=== PATIENT | female | born 1930 | race Caucasian/White ===

== ENCOUNTER 2016-10-04 08:46 | Inpatient (IN) | payer OTHER ==
--- NOTE | 2016-10-04 09:05 | PDOC ---
Attending Attestation - Resident Resident Name: Fide Bentley - ED Attending Attestation I have performed the following: I have examined & evaluated the patient, The case was reviewed & discussed with the resident, I agree w/resident's findings & plan, Exceptions are as noted - HPI HPI: 10/04/16 09:06 The patient is an 86 year old who presents s/p unwitnessed fall with head trauma. After the fall she had no complaints but this morning she was complaining of left hip pain and the daughter noticed a bruise on her left forehead. She is unsure whether or not she lost consciousness before or after the fall. 10/04/16 12:44 10/04/16 12:46 - Physicial Exam PE: 10/04/16 09:08 She is well appearing and in no acute distress Small left forehead hematoma and ecchymosis No c-spine tenderness - Medical Decision Making 10/04/16 09:08 Will obtain head and C-spine CT Will obtain left hip XR 10/04/16 11:21 CTs noted X-ray noted As the patient continues to have pain when she bears weight, will obtain CT of the left hip and pelvis 10/04/16 12:43 CT results noted, without evidence of femur fracture but with evidence of pelvic fracture She is ambulating without difficulty She continues to report that she is unsure whether or not she lost consciousness before or after the fall. Labs noted, with mildly elevated troponin, but not in the range of NSTEMI Clinical impression: Syncope Acute Kidney injury Closed head injury, without evidence of concussion Pelvis fracture Will admit Case discussed in detail with admitting provider including history, physical exam and ancillary studies. Admitting physician has assumed care for the patient, will follow all pending diagnostics and will complete the evaluation and treatment. 10/04/16 13:38
--- NOTE | 2016-10-04 09:06 | PDOC ---
History of Present Illness - General Chief Complaint: Injury Stated Complaint: LEFT HIP PAIN Time Seen by Provider: 10/04/16 09:04 History Source: Patient, Family (daughter) - History of Present Illness Initial Comments: 10/04/16 09:16 The pt is a 86 year old female witha PMH of COPD, CKD, CHF, dementia who presents s/p unwitnessed fall last night. The pt pressed the alarm button and her daughter came to see her. This morning the pt was not able to stand and was complaining of left hip pain. Her daughter also noticed bruising on left side of her face. The pt doesn't know what happened, if she hit her head or had LOC. She is demented and lives alone. ROS is limited, her daughter is present at bedside. 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) Dementia: Yes - Psycho/Social/Smoking Cessation Hx Anxiety: No Suicidal Ideation: No Smoking History: Former smoker Have you smoked in the past 12 months: No If you are a former smoker, when did you quit?: 1989 Hx Alcohol Use: No Drug/Substance Use Hx: No Substance Use Type: None Review of Systems - Review of Systems Able to Perform ROS?: Yes (demented) Comments:: 10/04/16 09:45 REVIEW OF SYSTEMS: limited due to dementia CONSTITUTIONAL: Absent: fever, chills HEENT: Absent: ear pain, eye pain, visual changes CARDIOVASCULAR: Absent: chest pain, syncope, palpitations RESPIRATORY: Absent: cough, shortness of breath GASTROINTESTINAL: Absent: abdominal pain, nausea, vomiting, diarrhea, constipation, GENITOURINARY: Absent: dysuria MUSCULOSKELETAL: Absent: myalgia, arthralgia, joint swelling, back pain, neck pain SKIN: Absent: rash, itching, pallor NEUROLOGIC: Absent: headache, dizziness Is the patient limited Danish proficient: No *Physical Exam - Physical Exam Comments: 10/04/16 09:41 GENERAL: The patient is awake, alert, and fully oriented, in no acute distress, cachectic. HEAD: Bruise on left facialbone, no bleeding, head AT/NC. EYES: PERRL, extraocular movements intact, sclera anicteric, conjunctiva clear. No ptosis. ENT: Ears normal, nares patent, oropharynx clear without exudates, dry mucous membranes. NECK: Trachea midline, full range of motion, supple. LUNGS: Breath sounds equal, clear to auscultation bilaterally, no wheezes, no crackles, no accessory muscle use. HEART: Regular rate and rhythm, S1, S2, systolic murmur neema right and left sternaql border rdiating to apex, apex not displaced, no rub or gallop. ABDOMEN: Soft, nontender, nondistended, normoactive bowel sounds, no guarding, no rebound, no hepatosplenomegaly, no masses. EXTREMITIES: 2+ pulses, warm, well-perfused, no edema, pain on external rotation of left hip, nl ROM in r hip, nl ROM in upper extremities. NEUROLOGICAL: Normal speech, no facial asymmetry, gait not observed. PSYCH: Normal mood, normal affect. SKIN: Warm, dry, normal turgor, no rashes or lesions noted 10/04/16 12:57 ED Treatment Course - LABORATORY CBC & Chemistry Diagram: 10/04/16 10:50 10/04/16 10:50 Medical Decision Making - Medical Decision Making 10/04/16 09:48 The pt is a 86 year old female who presents s/p unwitnessed fall. Differential diagnosis include hip fracture, head trauma, ACS, metanolic imbalance. We ordered x ray left hip, CT head, c-spine CT, facial bone CT, cardiac profile , EKG, UA, CBC, CMP. 10/04/16 12:42 We reviewed the results of X ray hip/fracure-no acute pathology, CT lower extremitiy-nl, CT pelvis shows fracture, also nl CT head and facial bones Her BUN and Cr , troponin are elevated. The pt lives alone and is not able to bear omer. We recommend to admit her to inpatient-telemetry. Discussed with Dr. Carreno, hospitalist. *DC/Admit/Observation/Transfer Diagnosis at time of Disposition: Syncope - Discharge Dispostion Admit: Yes - Patient Instructions
[2016-10-04] MEDS ORDERED: ACETAMINOPHEN 1000 MG/100 ML VIAL (NON FORMULARY) IVPB ONE (09:52)
[2016-10-04] MEDS ORDERED: ACETAMINOPHEN INJECTION 100 ML IVPB ONE (10:51)
[2016-10-04 11:05] LABS: MCH 29.3 pg (25.7-33.7); MCHC 31.6 g/dl (32.0-36.0); MEAN CELL VOLUME 92.6 fl (80-96); MEAN PLT VOLUME 9.5 fl (7.5-11.1); PLATELET COUNT 162 K/MM3 (134-434); RDW 19.5 % (11.6-15.6); WHITE BLOOD COUNT 7.8 K/mm3 (4.0-10.0)
[2016-10-04 11:37] LABS: BILIRUBIN,TOTAL 1.5 mg/dL (0.2-1.0); CALCIUM 8.8 mg/dL (8.5-10.1); CREATININE 1.7 mg/dL (0.55-1.02); TOT PROT 6.4 g/dl (6.4-8.2)
[2016-10-04 12:00] LABS: TROPONIN I 0.11 ng/ml (0.00-0.05)
[2016-10-04] MEDS ORDERED: ALBUTEROL SO4 6.7 GM HFA INHALER IH PRN (14:25)
[2016-10-04] MEDS ORDERED: ACETAMINOPHEN 650 MG/20.3 ML ORAL SOLUTION (CUPS) PO PRN (14:27)
[2016-10-04 14:34] VITALS: BMI 24.4
--- NOTE | 2016-10-04 15:18 | HP ---
CHIEF COMPLAINT: S/P fall PCP: Dr Allison Museum Director: Dr Farley HISTORY OF PRESENT ILLNESS: 86 year old female with pmh of Dementia, COPD on intermittent home O2, CHF, CAD , CKD, Fall who lives alone presnted to the ED s/p fall last night. the fall was unwitnessed, the patient press the panic button and the companied notified the daughter. Upon arrival, the daughter found the patient on the floor with bruises in left hand and left check. The patient was awake, alert and seems to be at baseline therefore the daughter did not bring her to the emergency room. This morning however, the patient was unable to walk so the daughter brought to the ED. the patient does not recall the event prior to the fall, it is unknown if the fall was mechanical or if the patient lost consciousness. The patient did not have any episode of incontinence when she was found by daughter, she was not lethargic. The patient currently denies any chest pain, palpitation, shortness of breath, no dizziness or confusion, no changes in vision, no numbness or tingling, no back pain, no dysarthria. ER course was notable for: (1) XRay left hip, CT head, CT cspine, CT facial bone, Ct lower ext, CT pelvis (2) (3) Recent Travel: None PAST MEDICAL HISTORY: Dementia, COPD on intermittent home O2, CHF, CAD, CKD, Fall PAST SURGICAL HISTORY: Cholecystectomy Social History: Smoking: former smoker quit in 1989, used to smoked 2 pack per day throughout adulthood Alcohol: denies alcohol Drugs: denies recreational drug Family History: Dementia Allergies No Known Allergies Allergy (Verified 10/27/15 12:08) Lactose intolerance HOME MEDICATIONS: Home Medications Medication Instructions Recorded Albuterol Sulfate [Proair 90 mcg IH Q4H PRN 10/27/15 Respiclick] Aspirin [ASA -] 81 mg PO DAILY 10/27/15 Furosemide [Lasix -] 20 mg PO DAILY #30 tablet 11/01/15 Magnesium Oxide 400 mg PO DAILY #14 tablet 11/01/15 REVIEW OF SYSTEMS CONSTITUTIONAL: Absent: fever, chills, diaphoresis, generalized weakness, malaise, loss of appetite, weight change HEENT: hard of hearing Absent: rhinorrhea, nasal congestion, throat pain, throat swelling, difficulty swallowing, mouth swelling, ear pain, eye pain, visual changes CARDIOVASCULAR: Absent: chest pain, syncope, palpitations, irregular heart rate, lightheadedness , peripheral edema RESPIRATORY: Absent: cough, shortness of breath, dyspnea with exertion, orthopnea, wheezing, stridor, hemoptysis GASTROINTESTINAL: Absent: abdominal pain, abdominal distension, nausea, vomiting, diarrhea, constipation, melena, hematochezia GENITOURINARY: Absent: dysuria, frequency, urgency, hesitancy, hematuria, flank pain, genital pain MUSCULOSKELETAL: Absent: myalgia, arthralgia, joint swelling, back pain, neck pain SKIN: rash lower abdomen and perineal, bruise in left hand and left cheek Absent: itching, pallor HEMATOLOGIC/IMMUNOLOGIC: Absent: easy bleeding, easy bruising, lymphadenopathy, frequent infections ENDOCRINE: Absent: unexplained weight gain, unexplained weight loss, heat intolerance, cold intolerance NEUROLOGIC: Absent: headache, focal weakness or paresthesias, dizziness, unsteady gait, seizure, mental status changes, bladder or bowel incontinence PSYCHIATRIC: Absent: anxiety, depression, suicidal or homicidal ideation, hallucinations. PHYSICAL EXAMINATION Vital Signs - 24 hr 10/04/16 13:00 Pulse Rate [ 82 Apical] Respiratory 14 Rate Blood Pressure 109/60 [Right] O2 Sat by Pulse 99 Oximetry (%) GENERAL: Awake, alert, and fully oriented, in no acute distress. HEAD: Normal with no signs of trauma. EYES: Pupils unequal, right round and reactive to light, left oval barely reactive. extraocular movements intact, sclera anicteric, conjunctiva clear. No lid lag. EARS, NOSE, THROAT: Ears normal, nares patent, oropharynx clear without exudates. Moist mucous membranes. NECK: Normal range of motion, supple without lymphadenopathy, moderate JVD, or masses. LUNGS: Breath sounds equal, clear to auscultation bilaterally. No wheezes, No accessory muscle use. B/l crackles in lower lung fileds HEART: Regular rate and rhythm, normal S1 and S2 with pansystolic murmur 3/6, rub or gallop. ABDOMEN: Soft, nontender, not distended, normoactive bowel sounds, no guarding, no rebound, no masses. No hepatomegaly or splenomegaly. MUSCULOSKELETAL: Normal range of motion at all joints. No bony deformities or tenderness. No CVA tenderness. UPPER EXTREMITIES: 2+ pulses, warm, well-perfused. No cyanosis. No clubbing. No peripheral edema. LOWER EXTREMITIES: 2+ pulses, warm, well-perfused. No calf tenderness. b/l lower ext edma 2+. Limited rom in b/l hips. NEUROLOGICAL: Alert, awake, oriented to person and place, not to time, forgetful. unable to properly assess Cranial nerves. No chnages in vision with glasses, poor hearing, no facial assymetry or droop, normal light touch sensation in face, no uvula deviation or tongue deviation, normal head motion, No deficits to light touch and temperature in face, upper extremities and lower extremities. No motor deficits in the in face, upper extremities and lower extremities. Normoreflexic in the upper and lower extremities. Normal speech. Toes are down-going bilaterally. Unable to assess gait to hip fracture. PSYCHIATRIC: Cooperative. Good eye contact. Appropriate mood and affect. SKIN: Warm, dry,poor skin turgor, rashes in lower abdomen and perineal area, skin bruise over left zygomatic bone CBC, BMP 10/04/16 10:50 10/04/16 10:50 ASSESSMENT/PLAN: 86 year old female with pmh of Dementia, COPD on intermittent home O2, CHF, CAD , CKD, Fall who lives alone presnted to the ED with her daughter s/p fall unwitnessed fall. Pt was found to have communited fracture in left pelvic bone and non discplaced fracture of mid anterior ischium. Unwitnessed Fall r/o Syncope Syncope can due by multiple causes including orthostatic, cardiac arrhythmia, mechanical cardiac (Aortic Stenosis), orthostatic, Vasovagal. Other causes may include Seizure but it is unlikely due to lack of lip/tongue biting, incontinence, post ictal phase when found by daughter. It may have been a mechanical fall. Consider acute hypoglypoglycemia, medication effect, dehydration, electrolytes imbalance, UTI and other infections. Also have to worry about trauma from fall. CT head showed nothing acute CT Cspine was negative for fracture bit showed emphysema, moderate left pleural effusion. recent echocardiogram done at Dr Farley [facility], will obtain records. Will repeat echo if unable to get records Telemetry EKg UA CXR Troponins BMP, CBC, mg, phos in am BGM Consider cardiology consult Dr Farley Comminuted fracture in left pelvic bone and non displaced fracture of mid anterior ischium CT hip and CT lower ext showed fracture bed rest Consult ortho Margarita Echeverria Physical therapy eval Elevated troponins r/o ACS vs Enzymes leakage from CHF//cardiomyopathy EKg with junctional rhythm 99 T-wave inversion in leads V4 to V6, T wave flattening in leads II, III, AvF Trend troponins Cardiology consult Dr Farley CKD Cr 1.7 baseline is close to 1.4 in last admission in 2016 Candidal intertrigo clotrimazole cream or nystatin powder BID COPD Albuterol PRN CHF/CAD Pt has mild JVD, lower ext edema and crackle Prior Echo showed Normal LV size, LV systolic function moderately reduced, Moderate global hypokinesis. Severe Aortic stenosis with aortic mean pressure gradient=36. Aortic valve area 0.3cm sq. Moderate MR, TR, RVSP more than 60, severe pulm HTN. CXR BNP cardiac profile Resume lasix Monitor Blood Pressure cardiology consult Dementia Consider aricept FEN Fluid: none Electrolytes: none Nutrition: none DVT prophylaxis: Heparin SQ 5000 U q8h Disposition: keep in telemetry pending complete syncope workup, trending troponins, and ortho eval for the fracture. Visit type - Emergency Visit Emergency Visit: Yes ED Registration Date: 10/04/16 Care time: The patient presented to the Emergency Department on the above date and was hospitalized for further evaluation of their emergent condition. - New Patient This patient is new to me today: Yes Date on this admission: 10/04/16 - Critical Care Critical Care patient: No
[2016-10-04] MEDS: HEPARIN NA (PORCINE) 5,000 UNITS/ML 1ML VIAL SQ SCH ×2 (15:57→22:24)
--- NOTE | 2016-10-04 16:58 | CON.CARD ---
Cardiology Consult (text) - Consultation Consultation Note: CC: s/p fall 86-year-old with h/o severe and cardiomyopathy, presumed CAD, emphysema on home O2, CKD, and dementia, who presents today s/p fall Per report, patient activated help button s/p fall. Fall was unwitnessed, she does not remember details of event. Not clear if mechanical fall or syncope. Patient had been in usual state of health. No recent worsening of mental status. Currently denies cp, sob, palps, dizziness, palps. Denies f/c/s, n/v/d, h/a, rashes, cough, congestion. PMHx: Per HPI Social hx: Former smoker, no alcohol or illicits. Family hx: no cardiac history ROS: Per HPI, limited due to mental status. Ambulatory Orders Albuterol Sulfate [Proair Respiclick] 90 mcg IH Q4H PRN 10/27/15 Aspirin [ASA -] 81 mg PO DAILY 10/27/15 Furosemide [Lasix -] 20 mg PO DAILY #30 tablet 11/01/15 Magnesium Oxide 400 mg PO DAILY #14 tablet 11/01/15 Clotrimazole 15 gm TP DAILY 10/04/16 Current Medications Acetaminophen (Tylenol Oral Solution -) 650 mg PO Q6H PRN PRN Reason: FEVER OR PAIN Albuterol Sulfate (Ventolin Hfa Inhaler -) 1 puff IH Q4H PRN PRN Reason: WHEEZING Furosemide (Lasix -) 20 mg PO DAILY [facility] Heparin Sodium (Porcine) (Heparin -) 5,000 unit SQ TID [facility] Last Admin: 10/04/16 15:57 Dose: 5,000 unit Magnesium Oxide (Mag-Ox -) 400 mg PO DAILY [facility] Nystatin (Nystop Powder -) 1 applic TP BID [facility] Vital Signs - 24 hr 10/04/16 10/04/16 10/04/16 08:59 13:00 14:16 Temperature 98.1 F 97.7 F Pulse Rate 67 87 Pulse Rate [ 82 Apical] Respiratory 16 14 20 Rate Blood Pressure 105/53 102/56 Blood Pressure 109/60 [Right] O2 Sat by Pulse 96 99 99 Oximetry (%) 10/04/16 10/04/16 10/04/16 14:43 15:29 15:50 Temperature 97.5 F L Pulse Rate 82 Pulse Rate [ 92 H Apical] Respiratory 16 17 18 Rate Blood Pressure 103/55 Blood Pressure 109/56 [Right] O2 Sat by Pulse 99 99 Oximetry (%) 10/04/16 17:00 Temperature 98.0 F Pulse Rate 90 Pulse Rate [ Apical] Respiratory 18 Rate Blood Pressure 115/56 Blood Pressure [Right] O2 Sat by Pulse Oximetry (%) NAD, Calm AAOx 2 Bibasilar dullness, normal effort RRR nl s1, s2 2/6 harsh systolic murmur at USB, radiating throughout precordium. 2/6 sys murmur at apex (MR?) + bs soft nt nd trace edema ext without cyanosis or clubbing + dp/pt no jaundice or diaphoresis. CBC, BMP 10/04/16 10:50 10/04/16 10:50 Laboratory Tests 10/04/16 10/04/16 10:50 17:00 Total Bilirubin 1.5 H D AST 37 D ALT 28 D Alkaline Phosphatase 238 H D Creatine Kinase 78 67 Troponin I 0.11 H 0.12 H Albumin 3.0 L EKG: poor baseline, SR, anterolateral T wave inversions, likely repolarization abnormality. Similar to priors tele: SR, pac's, artifact echo 09/2016: nl lv size, global HK, lvef 35-40, g2dd, nl rv, mild lae, trace ar , sev , mild mac, mild mr, mod tr, mod phtn.eg 86-year-old with h/o severe and cardiomyopathy, presumed CAD, emphysema , CKD , and dementia, who presents today s/p fall Fall/syncope - unknown if mechanical or syncope/presyncope - PT evaluation - If true syncope --> concerning for as etiology. Orthostatic vitals if possible. Infectious work up per pmd. - TSH - telemetry monitoring. Pre-operative clearance/pelvic fracture - Patient with end-stage valvular which meets criteria for intervention, but has deferred. As a result patient is at high risk for surgery and would recommend non-surgical options if possible. 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 Pt has dementia and does not fully understand her condition. Ongoing conservative tx with diuretic as tolerated. - Patient currently volume overloaded and in heart failure exacerbation with pulmonary edema on CXR and hepatic congestion.. If no concern for worsening hypotension 2/2 infection/anemia (small hematoma assoc with fx on CT) would intiate gentle diuresis with lasix 20 mg IV daily tomorrow with close monitoring. - caution with hypotension, avoid volume depletion cardiomyopathy - unclear to me if 2/2 end-stage or if cardiomyopathy was pre-existing. If 2 /2 then adds to overall risk/poor prognosis of . - Minimal bp room for HF regimen. diuresis as above. possible cad: - During admit 10/2015 for chf/ pt had mildly elevated trop. Flat trop trend then was not c/w ACS (plaque rupture) and was likely secondary to hypoperfusion or transient supply/demand imbalance, hemodynamically signif may have contributed as well. - current intermediate troponin elevation, also with flat trend. Likely similar etiology. - con't asa 81 . statin at discretion of outpatient payroll administrator once hepatic function normalizes. - Currently no anginal sxs and able to enjoy her senior center activities and with her baseline dementia further ischemic workup unlikely to provide significant benefit. Monitor for now. ckd - appears to be close to baseline. copd - per pmd
[2016-10-04 18:10] LABS: TROPONIN I 0.12 ng/ml (0.00-0.05)
--- NOTE | 2016-10-04 19:09 | PN ---
Teaching Attending Note Name of Resident: David Prado ATTENDING PHYSICIAN STATEMENT I saw and evaluated the patient. I reviewed the resident's note and discussed the case with the resident. I agree with the resident's findings and plan as documented. SUBJECTIVE: OBJECTIVE: Vital Signs Period Temp Pulse Resp BP Sys/Hyman Pulse Ox Last 24 Hr 97.5 F-98.1 F 67-92 14-20 102-109/53-60 96-99 ASSESSMENT AND PLAN:
[2016-10-04] MEDS: NYSTATIN POWDER 100,000 UNITS/GM - 15 GM TOPICAL POWDER TP SCH (22:24)
[2016-10-05] MEDS: HEPARIN NA (PORCINE) 5,000 UNITS/ML 1ML VIAL SQ SCH ×3 (06:46→22:06)
[2016-10-05 08:04] LABS: MCH 29.4 pg (25.7-33.7); MEAN CELL VOLUME 91.8 fl (80-96); MEAN PLT VOLUME 9.6 fl (7.5-11.1); PLATELET COUNT 164 K/MM3 (134-434); RDW 20.1 % (11.6-15.6); WHITE BLOOD COUNT 6.3 K/mm3 (4.0-10.0)
[2016-10-05 08:15] LABS: CALCIUM 8.3 mg/dL (8.5-10.1); INR 1.1 (0.82-1.09); MAGNESIUM 2.2 mg/dL (1.8-2.4); PROTHROMBIN TIME (PATIENT) 12.1 SEC (9.98-11.88)
[2016-10-05 08:18] LABS: ACTIVATED PTT 27.4 SECONDS (26.9-34.4)
[2016-10-05 08:21] LABS: CREATININE 1.7 mg/dL (0.55-1.02); PHOSPHOROUS 2.9 mg/dL (2.5-4.9); TROPONIN I 0.12 ng/ml (0.00-0.05)
--- NOTE | 2016-10-05 09:07 | PN ---
Progress Note, Physician Chief Complaint: fall History of Present Illness: denies cp, sob, dizzy, palpitations (? reliable) - Current Medication List Current Medications: Active Medications Acetaminophen (Tylenol Oral Solution -) 650 mg PO Q6H PRN PRN Reason: FEVER OR PAIN Albuterol Sulfate (Ventolin Hfa Inhaler -) 1 puff IH Q4H PRN PRN Reason: WHEEZING Furosemide (Lasix -) 20 mg PO DAILY [facility] Heparin Sodium (Porcine) (Heparin -) 5,000 unit SQ TID [facility] Last Admin: 10/05/16 06:46 Dose: 5,000 unit Magnesium Oxide (Mag-Ox -) 400 mg PO DAILY [facility] Nystatin (Nystop Powder -) 1 applic TP BID [facility] Last Admin: 10/04/16 22:24 Dose: 1 applic - Objective Vital Signs: Vital Signs Temperature 97.7 F 10/05/16 01:00 Pulse Rate 100 H 10/05/16 01:00 Respiratory Rate 24 10/05/16 01:00 Blood Pressure 110/65 10/05/16 01:00 O2 Sat by Pulse Oximetry (%) 98 10/04/16 21:00 Constitutional: Yes: Well Nourished, No Distress, Calm Cardiovascular: Yes: Regular Rate and Rhythm (soft sounds), JVD, Murmur (soft syst murmur lusb), S1, S2. No: Gallop Respiratory: Yes: Regular, CTA Bilaterally, Diminished (L base). No: Accessory Muscle Use, Rales, Wheezes Extremities: No: Cold Edema: Yes (1+ ankles) Neurological: Yes: Alert. No: Seizure Psychiatric: No: Agitated Labs: CBC, BMP 10/05/16 05:35 10/05/16 05:35 INR, PTT INR 1.10 (0.82-1.09) 10/05/16 05:35 - ....Imaging EKG: Other (tele: likely sinus rhythm with freq APCs, some degree of sinus arrhythmia) Assessment/Plan Echo 09/2016: nl lv size, global HK, lvef 35-40, g2dd, nl rv, mild lae, sev , mild mr, mod tr, mod phtn 86-year-old with h/o severe and cardiomyopathy, presumed CAD, emphysema , CKD , and dementia, who presents today s/p fall Fall/syncope - unknown if mechanical or syncope/presyncope - PT evaluation - If true syncope --> concerning for as etiology. Orthostatic vitals if possible. Infectious work up per pmd. - telemetry monitoring. 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 - Patient currently volume overloaded and in heart failure exacerbation with pulmonary edema/effusions on CXR, +JVD -creat 1.7, similar to baseline (1.6) -start lasix 20 iv bid--watch for low bp's, daily bmp trend cardiomyopathy - unclear if 2/2 end-stage or if cardiomyopathy was pre-existing. - bp's 100s-110s here - reassess bp after diuresis--consider low dose BB (> ANGELES) if adequate bp room ( can also be done as outpt) possible cad: - During admit 10/2015 for chf/ pt had mildly elevated trop, in non-ACS picture (flat trend)--likely secondary to hypoperfusion or transient supply/ demand imbalance or incr myocardial wall tension from severe - current intermediate troponin elevation, also with flat trend, ECG without ischemic changes--no concern clinically for ACS here - con't asa 81. - Currently no anginal sxs and able to enjoy her senior center activities and with her baseline dementia further ischemic workup unlikely to provide significant benefit. Monitor for now. irregular heart rhythm: - likely sinus with sinus arrhythmia and APCs - ekg and rhythm strip ordered to confirm ckd - appears to be close to baseline. copd - per pmd
[2016-10-05 09:19] LABS: URINE APPEARANCE CLEAR; URINE BILIRUBIN NEGATIVE (NEGATIVE); URINE BLOOD NEGATIVE (NEGATIVE); URINE COLOR DKYELLOW; URINE GLUCOSE (UA) NEGATIVE (NEGATIVE); URINE KETONE NEGATIVE (NEGATIVE); URINE NITRITE NEGATIVE (NEGATIVE); URINE PROTEIN NEGATIVE (NEGATIVE); URINE UROBILINOGEN NEGATIVE E.U./dl (0.2-1.0)
[2016-10-05 09:21] LABS: URINE LEUK ESTERASE TRACE (NEGATIVE)
[2016-10-05 09:22] LABS: GRANULAR CASTS 3 /lpf; URINE BACTERIA RARE /hpf (NONE SEEN); URINE MUCUS RARE; URINE RBC 1 /hpf (0-3); URINE WBC 2 /hpf (3-5)
[2016-10-05] MEDS ORDERED: FUROSEMIDE 20 MG TABLET (FP) PO SCH (10:00)
[2016-10-05] MEDS: MAGNESIUM OXIDE 400 MG TABLET (FP) PO SCH (11:06)
[2016-10-05] MEDS: NYSTATIN POWDER 100,000 UNITS/GM - 15 GM TOPICAL POWDER TP SCH ×2 (11:07→22:06)
--- NOTE | 2016-10-05 11:59 | PN ---
Progress Note (short form) - Note Progress Note: currently asymptomatic. states she knows she fell out of the bed but does not recall the surrounding situation and if she had any symptoms prior to falling. denies Cp, SOB,fever, chills, N/V/C/D Current Medications Generic Name Dose Route Start Last Admin Trade Name Freq PRN Reason Stop Dose Admin Acetaminophen 650 mg 10/04/16 14:27 Tylenol Oral Solution - PO Q6H PRN FEVER OR PAIN Albuterol Sulfate 1 puff 10/04/16 14:25 Ventolin Hfa Inhaler - IH Q4H PRN WHEEZING Furosemide 20 mg 10/05/16 14:00 Lasix Injection - IVPUSH BID@0600,1400 ANABELLE Heparin Sodium (Porcine) 5,000 unit 10/04/16 14:45 10/05/16 06:46 Heparin - SQ 5,000 unit TID ANABELLE Administration Magnesium Oxide 400 mg 10/05/16 10:00 10/05/16 11:06 Mag-Ox - PO 400 mg DAILY ANABELLE Administration Nystatin 1 applic 10/04/16 22:00 10/05/16 11:07 Nystop Powder - TP 1 applic BID ANABELLE Administration Last Vital Signs Temp Pulse Resp BP Pulse Ox 98.6 F 89 18 121/76 98 10/05/16 09:00 10/05/16 09:00 10/05/16 09:00 10/05/16 09:00 10/05/16 09:00 General NAD CV s1 S2 RRR +murmur no rubs or gallops Lungs decreased at the bases, no wheezing or crackles Abdomen soft NT/ND Extremities no pedal edema CBCD WBC 6.3 K/mm3 (4.0-10.0) 10/05/16 05:35 RBC 3.83 M/mm3 (3.60-5.2) 10/05/16 05:35 Hgb 11.3 GM/dL (10.7-15.3) 10/05/16 05:35 Hct 35.2 % (32.4-45.2) 10/05/16 05:35 MCV 91.8 fl (80-96) 10/05/16 05:35 MCHC 32.0 g/dl (32.0-36.0) 10/05/16 05:35 RDW 20.1 % (11.6-15.6) H 10/05/16 05:35 Plt Count 164 K/MM3 (134-434) 10/05/16 05:35 MPV 9.6 fl (7.5-11.1) 10/05/16 05:35 CMP Sodium 142 mmol/L (136-145) 10/05/16 05:35 Potassium 4.2 mmol/L (3.5-5.1) 10/05/16 05:35 Chloride 106 mmol/L (98-107) 10/05/16 05:35 Carbon Dioxide 23 mmol/L (21-32) 10/05/16 05:35 Anion Gap 13 (8-16) 10/05/16 05:35 BUN 38 mg/dL (7-18) H 10/05/16 05:35 Creatinine 1.7 mg/dL (0.55-1.02) H 10/05/16 05:35 Creat Clearance w eGFR 28.56 (>60) 10/04/16 10:50 Random Glucose 85 mg/dL (74-106) 10/05/16 05:35 Calcium 8.3 mg/dL (8.5-10.1) L 10/05/16 05:35 Total Bilirubin 1.5 mg/dL (0.2-1.0) H D 10/04/16 10:50 AST 37 U/L (15-37) D 10/04/16 10:50 ALT 28 U/L (12-78) D 10/04/16 10:50 Alkaline Phosphatase 238 U/L (45-117) H D 10/04/16 10:50 Total Protein 6.4 g/dl (6.4-8.2) 10/04/16 10:50 Albumin 3.0 g/dl (3.4-5.0) L 10/04/16 10:50 CARDIAC ENZYMES Creatine Kinase 85 IU/L (26-192) 10/05/16 05:35 Troponin I 0.12 ng/ml (0.00-0.05) H 10/05/16 05:35 A/P 86yo F wtih PMH Dementia, COPD on intermittent home O2, CHF, CAD, CKD, Fall presented to the ER and was admitted for further evaluation of their emergent condition 1. Unwitnessed fall- unable to r/o syncope. no events on tele monitor. recent echo noted from cardiology with severe which can play a role in symptoms however pt has refused surgical intervention. PT eval 2. Acute on chronic systolic CHF- no baseline weight obtained. cont lasix 20mg IV BID. monitor electrolytes. strict I&O, daily weights. will start acei if Cr stays stable 3. Elevated tropinin- likely leak. was elevated last year when here for similar presentation. no EKG changes. re-start asa 4. Pelvic fracture- not a good surgical candidate. ortho consulted. pain control. PT eval once cleared for weight bearing. may require RODRIGO on discharge 5. COPD on home O2- not currently on oxygen. will have her evaluated prior to discharge. nebs prn 6. DVT ppx- hep sq Visit type - Emergency Visit Emergency Visit: Yes ED Registration Date: 10/04/16 Care time: The patient presented to the Emergency Department on the above date and was hospitalized for further evaluation of their emergent condition. - New Patient This patient is new to me today: Yes Date on this admission: 10/05/16 - Critical Care Critical Care patient: No - Discharge Referral Referred to [facility] Med P.C.: No
[2016-10-05] MEDS: ASPIRIN COATED 81 MG TABLET.EC PO SCH (13:07)
[2016-10-05] MEDS: FUROSEMIDE 40 MG/4 ML INJECTABLE VIAL IVPUSH SCH (13:07)
--- NOTE | 2016-10-05 18:22 | EKG ---
Test Reason : Blood Pressure : / mmHG Vent. Rate : 101 BPM Atrial Rate : 101 BPM P-R Int : 000 ms QRS Dur : 100 ms QT Int : 346 ms P-R-T Axes : 094 015 188 degrees QTc Int : 448 ms SINUS TACHYCARDIA WITH PREMATURE SUPRAVENTRICULAR COMPLEXES AND PREMATURE VENTRICULAR COMPLEXES OR FUSION COMPLEXES ABNORMAL ECG WHEN COMPARED WITH ECG OF 05-OCT-2016 09:39, FUSION COMPLEXES ARE NOW PRESENT PREMATURE VENTRICULAR COMPLEXES ARE NOW PRESENT Confirmed by AMY DELGADO, ROSA ([id number]) on 10/05/2016 6:21:37 PM Referred By: Heaven ORNELAS Confirmed By:ROSA REYES MD
--- NOTE | 2016-10-05 18:22 | EKG ---
Test Reason : Blood Pressure : / mmHG Vent. Rate : 099 BPM Atrial Rate : 099 BPM P-R Int : 154 ms QRS Dur : 098 ms QT Int : 356 ms P-R-T Axes : 060 021 189 degrees QTc Int : 456 ms SINUS RHYTHM WITH PREMATURE ATRIAL COMPLEXES LEFT VENTRICULAR HYPERTROPHY WITH REPOLARIZATION ABNORMALITY ABNORMAL ECG WHEN COMPARED WITH ECG OF 04-OCT-2016 11:04, SINUS RHYTHM HAS REPLACED JUNCTIONAL RHYTHM Confirmed by AMY DELGADO, ROSA ([id number]) on 10/05/2016 6:22:35 PM Referred By: Kya LINDSAY Confirmed By:ROSA REYES MD
--- NOTE | 2016-10-05 18:33 | EKG ---
Test Reason : Blood Pressure : / mmHG Vent. Rate : 099 BPM Atrial Rate : 100 BPM P-R Int : 000 ms QRS Dur : 098 ms QT Int : 362 ms P-R-T Axes : 000 000 191 degrees QTc Int : 464 ms POOR DATA QUALITY, INTERPRETATION MAY BE ADVERSELY AFFECTED ACCELERATED JUNCTIONAL RHYTHM LEFT VENTRICULAR HYPERTROPHY WITH REPOLARIZATION ABNORMALITY ABNORMAL ECG WHEN COMPARED WITH ECG OF 27-OCT-2015 15:01, JUNCTIONAL RHYTHM HAS REPLACED SINUS RHYTHM Confirmed by ROSA REYES MD ([id number]) on 10/05/2016 6:32:47 PM Referred By: Confirmed By:ROSA REYES MD
[2016-10-05] MEDS ORDERED: PT OWN MED DRAWER 7, Y5N ONE (22:09)
[2016-10-06] MEDS: HEPARIN NA (PORCINE) 5,000 UNITS/ML 1ML VIAL SQ SCH ×3 (06:49→21:08)
[2016-10-06] MEDS: FUROSEMIDE 40 MG/4 ML INJECTABLE VIAL IVPUSH SCH ×2 (06:49→13:00)
[2016-10-06] MEDS ORDERED: HALOPERIDOL LACTATE 5 MG/ML IM ONE (07:44)
[2016-10-06] MEDS: ACETAMINOPHEN 325 MG TABLET (FP) PO PRN ×3 (07:50→16:23)
[2016-10-06 07:59] LABS: CALCIUM 8.5 mg/dL (8.5-10.1)
[2016-10-06 08:00] LABS: CREATININE 1.8 mg/dL (0.55-1.02)
--- NOTE | 2016-10-06 08:47 | PN ---
Physical Exam: SUBJECTIVE: Patient seen and examined Pt is out of bed to chair in the hallway No s./s of distress presently confused no fever or chills no chest pain, palpitation, no sob OBJECTIVE: Vital Signs Period Temp Pulse Resp BP Sys/Hyman Pulse Ox Last 24 Hr 97.6 F-98.6 F 89-111 18-20 102-125/54-76 96-98 GENERAL: Awake, alert, and oriented to person only, in no acute distress. HEAD: Normal with no signs of trauma. LUNGS: Breath sounds equal, clear to auscultation bilaterally. No wheezes, No accessory muscle use. Minimal B/l crackles in lower lung arciniega HEART: Regular rate and rhythm, normal S1 and S2 with pansystolic murmur 3/6, rub or gallop. ABDOMEN: Soft, nontender, not distended, normoactive bowel sounds, no guarding, no rebound, no masses. No hepatomegaly or splenomegaly. MUSCULOSKELETAL: Normal range of motion at all joints. No bony deformities or tenderness. No CVA tenderness. UPPER EXTREMITIES: 2+ pulses, warm, well-perfused. No cyanosis. No clubbing. No peripheral edema. LOWER EXTREMITIES: 2+ pulses, warm, well-perfused. No calf tenderness. b/l lower ext edma 2+. Limited rom in b/l hips. NEUROLOGICAL: Alert, awake, oriented to person, not to time, place. forgetful. moves all ext. no focal weakness, take couple of steps with assist PSYCHIATRIC: Cooperative. Good eye contact. Appropriate mood and affect. SKIN: Warm, dry,poor skin turgor, rashes in lower abdomen and perineum area improving and receding Laboratory Results - last 24 hr 10/05/16 10/06/16 12:47 05:35 Sodium 139 Potassium 4.0 Chloride 102 Carbon Dioxide 26 Anion Gap 11 BUN 40 H Creatinine 1.8 H POC Glucometer 110 Random Glucose 79 Calcium 8.5 Active Medications Generic Name Dose Route Start Last Admin Trade Name Freq PRN Reason Stop Dose Admin Acetaminophen 650 mg 10/06/16 07:49 Tylenol - PO Q4H PRN FEVER OR PAIN Albuterol Sulfate 1 puff 10/04/16 14:25 Ventolin Hfa Inhaler - IH Q4H PRN WHEEZING Aspirin 81 mg 10/05/16 12:15 10/05/16 13:07 Ecotrin - PO 81 mg DAILY ANABELLE Administration Furosemide 20 mg 10/05/16 14:00 10/06/16 06:49 Lasix Injection - IVPUSH 20 mg BID@0600,1400 ANABELLE Administration Heparin Sodium (Porcine) 5,000 unit 10/04/16 14:45 10/06/16 06:49 Heparin - SQ 5,000 unit TID ANABELLE Administration Magnesium Oxide 400 mg 10/05/16 10:00 10/05/16 11:06 Mag-Ox - PO 400 mg DAILY ANABELLE Administration Nystatin 1 applic 10/04/16 22:00 10/05/16 22:06 Nystop Powder - TP 1 applic BID ANABELLE Administration CBC, BMP 10/05/16 05:35 10/06/16 05:35 ASSESSMENT/PLAN: 86 year old female with pmh of Dementia, COPD on intermittent home O2, CHF, CAD , CKD, Fall who lives alone presented to the ED with her daughter s/p fall unwitnessed fall. Pt was found to have comminuted fracture in left pelvic bone and non displaced fracture of mid anterior ischium. Unwitnessed Fall r/o Syncope Syncope can due by multiple causes including orthostatic, cardiac arrhythmia, mechanical cardiac (Aortic Stenosis), orthostatic, Vasovagal. Seizure is unlikely due to lack of lip/tongue biting, incontinence, post ictal phase when found by daughter. It may have been a mechanical fall. Consider acute hypoglypoglycemia, medication effect, dehydration, electrolytes imbalance, UTI and other infections. Also have to worry about trauma from fall. CT head showed nothing acute CT C-spine was negative for fracture bit showed emphysema, moderate left pleural effusion. Recent echocardiogram done at Dr [facility]. Echo from last year showed LV nl size, LV syst function mod reduced, Mod global hypokinesis, sever pulm HTN, RSVP >60, mod TR and MR. Aortic mean pressure gradient =36, aortic valve 0.3cm sq Telemetry monitoring Consider cardiology consult Dr Farley Comminuted fracture in left pelvic bone and non displaced fracture of mid anterior ischium CT hip and CT lower ext showed fracture Consult ortho Dr Hager, Pt seen by Dr Morris, No surgery needed Weight bearing as tolerated pain control Physical therapy eval irregular heart rhythm Sinus arrhythmia ? Tachycardia in low 100's, few beats of Vtach overnight episode of bradycardia while sleeping Could be rt to CHF and cardiomyopathy Consider Beta-Nina when not in acute CHF Elevated troponins r/o ACS vs Enzymes leakage from CHF//cardiomyopathy NO ACS, no chest pain, sob, palpitation EKg with junctional rhythm 99 T-wave inversion in leads V4 to V6, T wave flattening in leads II, III, AvF, no major changes from last admission Troponis stable 0.11, 0.12, 0.[address] Farley CHF/CAD Pt has mild JVD, lower ext edema and crackle Prior Echo showed Normal LV size, LV systolic function moderately reduced, Moderate global hypokinesis. Severe Aortic stenosis with aortic mean pressure gradient=36. Aortic valve area 0.3cm sq. Moderate MR, TR, RVSP more than 60, severe pulm HTN. Resume lasix Po in am Monitor Blood Pressure cardiology consult CKD Cr 1.8 Likely increased from Lasix baseline to 1.4-1.6 in last admission in 2015 Continue to monitor BMP Switch to lasix PO in am Dementia/delirium Pt was agitated this am was placed on restraint Was calm by the time of examination Will consider Haldol prn if recurrent episode of agitation Candidal intertrigo major improvement to redness and surface covered On nystatin powder BID, continue keep perineum dry, clean, free of urine and stool COPD Albuterol PRN FEN Fluid: none Electrolytes: none Nutrition: none DVT prophylaxis: Heparin SQ 5000 U q8h Disposition. keep in telemetry off restraint for 24 hours, pending PT eval for possible SNF placement on discharge Visit type - Emergency Visit Emergency Visit: Yes ED Registration Date: 10/04/16 Care time: The patient presented to the Emergency Department on the above date and was hospitalized for further evaluation of their emergent condition. - New Patient This patient is new to me today: No - Critical Care Critical Care patient: No - Discharge Referral Referred to [facility] Med P.C.: No
--- NOTE | 2016-10-06 08:52 | PN ---
Progress Note, Physician Chief Complaint: fall History of Present Illness: denies cp, sob, palpit, syncope - Current Medication List Current Medications: Active Medications Acetaminophen (Tylenol -) 650 mg PO Q4H PRN PRN Reason: FEVER OR PAIN Albuterol Sulfate (Ventolin Hfa Inhaler -) 1 puff IH Q4H PRN PRN Reason: WHEEZING Aspirin (Ecotrin -) 81 mg PO DAILY [facility] Last Admin: 10/05/16 13:07 Dose: 81 mg Furosemide (Lasix Injection -) 20 mg IVPUSH BID@0600,1400 [facility] Last Admin: 10/06/16 06:49 Dose: 20 mg Heparin Sodium (Porcine) (Heparin -) 5,000 unit SQ TID [facility] Last Admin: 10/06/16 06:49 Dose: 5,000 unit Magnesium Oxide (Mag-Ox -) 400 mg PO DAILY [facility] Last Admin: 10/05/16 11:06 Dose: 400 mg Nystatin (Nystop Powder -) 1 applic TP BID [facility] Last Admin: 10/05/16 22:06 Dose: 1 applic - Objective Vital Signs: Vital Signs Temperature 97.6 F 10/05/16 22:00 Pulse Rate 95 H 10/06/16 06:00 Respiratory Rate 20 10/06/16 06:00 Blood Pressure 114/63 10/06/16 06:00 O2 Sat by Pulse Oximetry (%) 96 10/05/16 21:00 Constitutional: Yes: Well Nourished, No Distress, Calm Cardiovascular: Yes: Regular Rate and Rhythm, JVD (probably, at 90 degrees), Murmur (soft syst murmur), S1, S2. No: Gallop Respiratory: Yes: Regular, CTA Bilaterally. No: Accessory Muscle Use, Rales, Wheezes Extremities: No: Cold Edema: Yes (2+ ankles) Neurological: Yes: Alert. No: Seizure Psychiatric: No: Agitated Labs: CBC, BMP 10/05/16 05:35 10/06/16 05:35 INR, PTT INR 1.10 (0.82-1.09) 10/05/16 05:35 - ....Imaging EKG: Other (tele: NSR; NSVT x6b) Assessment/Plan Echo 09/2016: nl lv size, global HK, lvef 35-40, g2dd, nl rv, mild lae, sev , mild mr, mod tr, mod phtn 86-year-old with h/o severe and cardiomyopathy, presumed CAD, emphysema , CKD , and dementia, who presents today s/p fall Fall vs ? syncope, pelvic fracture - unknown if mechanical or syncope/presyncope - PT evaluation - telemetry monitoring - orthostatic VS's noted: slight drop upon standing (7 mmHg)--on no offending meds; observe with diuresis; would not start midodrine of fludrocortisone severe , cardiomyopathy/acute syst chf: - Outpatient transcription coordinator has discussed treatment options for with son and daughter (pt with signif dementia), and they both declined invasive eval/ treatment of aortic valve dz. - Patient currently volume overloaded and in heart failure exacerbation with pulmonary edema/effusions on CXR, +JVD - started lasix 20 iv bid 10/05 - 10/06: bun/creat up slightly, wt inaccurate (111 to 124 overnight) - cont lasix, reassess labs and wt in am - start low dose bb (metopr succ 12.5 qd), titrate up and ? add ANGELES if adequate bp room (can also be done as outpt) VTach: -NSVT 6b; -low dose BB as bp permits -K and Mag good, replete per usual protocol possible cad: - During admit 10/2015 for chf/ pt had mildly elevated trop, in non-ACS picture (flat trend)--likely secondary to hypoperfusion or transient supply/ demand imbalance or incr myocardial wall tension from severe - current intermediate troponin elevation, also with flat trend, ECG without ischemic changes--no concern clinically for ACS here - con't asa 81. - Currently no anginal sxs and able to enjoy her senior center activities and with her baseline dementia further ischemic workup unlikely to provide significant benefit. Monitor for now. ckd - appears to be close to baseline. copd - per pmd pre-operative CV eval (pelvic fracture): - very hi risk for periop CV events given severe with associated LV syst dysfunction and acute chf
[2016-10-06] MEDS: NYSTATIN POWDER 100,000 UNITS/GM - 15 GM TOPICAL POWDER TP SCH ×2 (09:04→21:07)
[2016-10-06] MEDS: MAGNESIUM OXIDE 400 MG TABLET (FP) PO SCH (09:04)
--- NOTE | 2016-10-06 10:16 | CONSULT ---
Consult - text type - Consultation Consultation Note: FULL CONSULTATION DICTATED IMP: LEFT PUBIC AND ISCHIUM FX PLAN: WBAT, PT ANALGESICS, DC PLANNING
[2016-10-06] MEDS: METOPROLOL SUCCINATE 25 MG TAB.SR.24H (FP) PO SCH (11:39)
[2016-10-06] MEDS: ASPIRIN COATED 81 MG TABLET.EC PO SCH (11:40)
--- NOTE | 2016-10-06 13:27 | PN ---
Teaching Attending Note Name of Resident: David Prado ATTENDING PHYSICIAN STATEMENT I saw and evaluated the patient. I reviewed the resident's note and discussed the case with the resident. I agree with the resident's findings and plan as documented. SUBJECTIVE:currently asymptomatic. requesting to leave. denies CP, SOB,fever, chills, hip pain OBJECTIVE: Last Vital Signs Temp Pulse Resp BP Pulse Ox 97.6 F 95 H 20 114/63 96 10/05/16 22:00 10/06/16 06:00 10/06/16 06:00 10/06/16 06:00 10/05/16 21:00 General NAD confused oriented to self CV S1 S2 RRR pansystolic murmur Lungs CTA B/L no wheezing/rales/rhonchi Extremities 1+ pitting edema ASSESSMENT AND PLAN: 86yo F wtih PMH Dementia, COPD on intermittent home O2, CHF, CAD, CKD, Fall presented to the ER and was admitted for further evaluation of their emergent condition 1. Unwitnessed fall- unable to r/o syncope. orthostatics negative. NSVT noted on the monitor, may be related to event. started on betablocker by cardio. 2. Acute on chronic systolic CHF-improved. on lasix. with careful monitoring to not over diuresis with . consider switching to po in the AM. daily weights. 3. Elevated tropinin- likely leak. was elevated last year when here for similar presentation. no EKG changes. on asa 4. Pelvic fracture- no intervention at this time. appears to be in pain but does not request pain medications. will start tyelnol q8H standing with prn for 24H to see if agitation and overall comfort improved. encouraged to request pain medications. WBAT per ortho. PT eval. will require RODRIGO on discharge 5. dementia with agitation- noted to be agitated this AM. good effect with haldol. currently cooperating with daughter present. as per daughter this is her baseline to have bursts of agitation. but is generally pleasant. 6. Acute on CKD- baseline 1.6. currently near baseline. may be slight uptrend with lasix. monitor closely. 7. COPD on home O2- not currently on oxygen. will have her evaluated prior to discharge. nebs prn 8. DVT ppx- hep sq 9. case d/w daughter present at bedside. verbalized understanding and agree with plan to RODRIGO on discharge. prefers [place]. answered all questions
--- NOTE | 2016-10-06 14:10 | CONS ---
DATE OF CONSULTATION:10/06/2016 DATE OF DICTATION: 10/06/2016 The patient is an 86-year-old female status post fall, complaining of left hip and pelvic pain with difficulty ambulating. The patient is a poor historian, difficult to really get a good history of what exactly occurred. On physical exam, she has equal limb lengths, she has good range of motion of hip, knee, ankles and toes. Calf is soft, nontender. Neurovascularly intact. Some tenderness in her pubic region. Also some tenderness posteriorly, sacrum- ischial region. No gross swelling, ecchymosis. CT scan of the pelvis reveals a non-displaced fracture of the left pubic symphysis as well as a fracture of the ischium. The hip is within normal limits. No fracture. IMPRESSION: Pelvic fracture, nondisplaced, in an 86-year-old female. PLAN: Weightbearing as tolerated, physical therapy, analgesics. No surgical intervention required. Aaliyah [id number] MTDD
[2016-10-06] MEDS: ACETAMINOPHEN 325 MG TABLET (FP) PO SCH ×2 (14:27→21:07)
[2016-10-06] MEDS: QUEtiapine FUMARATE 25 MG TABLET (FP) PO SCH (21:07)
[2016-10-07] MEDS: ACETAMINOPHEN 325 MG TABLET (FP) PO SCH ×3 (06:59→22:01)
[2016-10-07] MEDS: FUROSEMIDE 40 MG/4 ML INJECTABLE VIAL IVPUSH SCH (06:59)
[2016-10-07] MEDS: HEPARIN NA (PORCINE) 5,000 UNITS/ML 1ML VIAL SQ SCH ×3 (07:00→22:01)
[2016-10-07 07:50] LABS: CALCIUM 8.2 mg/dL (8.5-10.1); CREATININE 2.2 mg/dL (0.55-1.02); MAGNESIUM 2.1 mg/dL (1.8-2.4)
--- NOTE | 2016-10-07 08:38 | PN ---
Progress Note, Physician Chief Complaint: , chf History of Present Illness: sitting in wheelchair near nurse's station; denies cp, sob, palpit, dizzy (? reliable) - Current Medication List Current Medications: Active Medications Acetaminophen (Tylenol -) 650 mg PO Q4H PRN PRN Reason: FEVER OR PAIN Last Admin: 10/06/16 16:23 Dose: 650 mg Acetaminophen (Tylenol -) 650 mg PO Q8H [facility] Last Admin: 10/07/16 06:59 Dose: 650 mg Albuterol Sulfate (Ventolin Hfa Inhaler -) 1 puff IH Q4H PRN PRN Reason: WHEEZING Aspirin (Ecotrin -) 81 mg PO DAILY [facility] Last Admin: 10/06/16 11:40 Dose: 81 mg Furosemide (Lasix Injection -) 20 mg IVPUSH BID@0600,1400 [facility] Last Admin: 10/07/16 06:59 Dose: 20 mg Heparin Sodium (Porcine) (Heparin -) 5,000 unit SQ TID [facility] Last Admin: 10/07/16 07:00 Dose: 5,000 unit Magnesium Oxide (Mag-Ox -) 400 mg PO DAILY [facility] Last Admin: 10/06/16 09:04 Dose: 400 mg Metoprolol Succinate (Toprol Xl -) 12.5 mg PO DAILY [facility] Last Admin: 10/06/16 11:39 Dose: 12.5 mg Nystatin (Nystop Powder -) 1 applic TP BID [facility] Last Admin: 10/06/16 21:07 Dose: 1 applic Quetiapine Fumarate (Seroquel -) 25 mg PO HS [facility] Last Admin: 10/06/16 21:07 Dose: 25 mg - Objective Vital Signs: Vital Signs Temperature 99.7 F H 10/07/16 01:54 Pulse Rate 99 H 10/07/16 05:00 Respiratory Rate 20 10/07/16 05:00 Blood Pressure 103/59 10/07/16 05:00 O2 Sat by Pulse Oximetry (%) 96 10/06/16 21:00 Constitutional: Yes: Well Nourished, No Distress, Calm Cardiovascular: Yes: Regular Rate and Rhythm, Murmur (soft syst murmur lusb), S1 , S2. No: Gallop Respiratory: Yes: Regular, CTA Bilaterally, Diminished (L lung diffusely). No: Accessory Muscle Use Extremities: No: Cold Edema: Yes (2+ ankles) Neurological: Yes: Alert. No: Seizure Psychiatric: No: Agitated Labs: CBC, BMP 10/05/16 05:35 10/07/16 05:32 INR, PTT INR 1.10 (0.82-1.09) 10/05/16 05:35 - ....Imaging EKG: Other (tele: NSR with APCs) Assessment/Plan Echo 09/2016: nl lv size, global HK, lvef 35-40, g2dd, nl rv, mild lae, sev , mild mr, mod tr, mod phtn 86-year-old with h/o severe and cardiomyopathy, presumed CAD, emphysema , CKD , and dementia, who presents today s/p fall Fall vs ? syncope, pelvic fracture - unknown if mechanical or syncope/presyncope - PT evaluation - telemetry monitoring - orthostatic VS's noted: slight drop upon standing (7 mmHg)--on no offending meds; observe with diuresis; would not start midodrine of fludrocortisone severe , cardiomyopathy/acute syst chf: - Outpatient curriculum director has discussed treatment options for with son and daughter (pt with signif dementia), and they both declined invasive eval/ treatment of aortic valve dz. - Patient currently volume overloaded and in heart failure exacerbation with pulmonary edema/effusions on CXR, +JVD - started lasix 20 iv bid 10/05 - 10/06: bun/creat up slightly, wt inaccurate (111 to 124 overnight) -10/07: wt up to 127, bun/creat signif worse -ct chest today to confirm xray findings represent effusions/pulm edema picture -renal sono to r/o obstruction -as long as pt remains without sx's of acute resp distress, will hold off on lasix until further clarify clinical picture - start low dose bb (metopr succ 12.5 qd), titrate up and ? add ANGELES if adequate bp room (can also be done as outpt) ANGELIKA on CKD: -baseline creat 1.6; -was 1.7 on admit--bun and creat both rising with lasix -r/o obstructive uropathy (sono) -will defer lasix today -consider renal consult--in discretion of hospitalist VTach: -NSVT 6b; -low dose BB as bp permits -K and Mag good, replete prn per usual protocol possible cad: - During admit 10/2015 for chf/ pt had mildly elevated trop, in non-ACS picture (flat trend)--likely secondary to hypoperfusion or transient supply/ demand imbalance or incr myocardial wall tension from severe - current intermediate troponin elevation, also with flat trend, ECG without ischemic changes--no concern clinically for ACS here - con't asa 81. - Currently no anginal sxs and able to enjoy her senior center activities and with her baseline dementia further ischemic workup unlikely to provide significant benefit. Monitor for now. copd - per pmd pre-operative CV eval (pelvic fracture): - very hi risk for periop CV events given severe with associated LV syst dysfunction and acute chf
--- NOTE | 2016-10-07 08:44 | PN ---
Physical Exam: SUBJECTIVE: Patient seen and examined Pt is awake, alert and oriented to person Pt is on restraint trying to get out of bed without help Pt denies pain, sob, chest pain, palpitation, dizziness. no event on monitor overnight OBJECTIVE: Vital Signs Period Temp Pulse Resp BP Sys/Hyman Pulse Ox Last 24 Hr 97.3 F-99.7 F 82-103 18-20 98-135/50-73 96-96 GENERAL: Awake, alert, and oriented to person only, in no acute distress. HEAD: Normal with no signs of trauma. LUNGS: Breath sounds equal, clear to auscultation bilaterally. No wheezes, No accessory muscle use. Minimal B/l crackles in lower lung arciniega HEART: Regular rate and rhythm, normal S1 and S2 with pansystolic murmur 3/6, rub or gallop. ABDOMEN: Soft, nontender, not distended, normoactive bowel sounds, no guarding, no rebound, no masses. No hepatomegaly or splenomegaly. MUSCULOSKELETAL: Normal range of motion at all joints. No bony deformities or tenderness. No CVA tenderness. UPPER EXTREMITIES: 2+ pulses, warm, well-perfused. No cyanosis. No clubbing. No peripheral edema. LOWER EXTREMITIES: 2+ pulses, warm, well-perfused. No calf tenderness. b/l lower ext edma 2+. Limited rom in b/l hips. NEUROLOGICAL: Alert, awake, oriented to person, not to time, place. forgetful. moves all ext. no focal weakness, PSYCHIATRIC: Cooperative. Good eye contact. Appropriate mood and affect. SKIN: Warm, dry,poor skin turgor, rashes in lower abdomen and perineum area improving and receding Laboratory Results - last 24 hr 10/07/16 05:32 Sodium 139 Potassium 4.1 Chloride 102 Carbon Dioxide 26 Anion Gap 11 BUN 48 H Creatinine 2.2 H D Random Glucose 86 Calcium 8.2 L Magnesium 2.1 Active Medications Generic Name Dose Route Start Last Admin Trade Name Freq PRN Reason Stop Dose Admin Acetaminophen 650 mg 10/06/16 07:49 10/06/16 16:23 Tylenol - PO 650 mg Q4H PRN Administration FEVER OR PAIN Acetaminophen 650 mg 10/06/16 14:00 10/07/16 06:59 Tylenol - PO 650 mg Q8H ANABELLE Administration Albuterol Sulfate 1 puff 10/04/16 14:25 Ventolin Hfa Inhaler - IH Q4H PRN WHEEZING Aspirin 81 mg 10/05/16 12:15 10/06/16 11:40 Ecotrin - PO 81 mg DAILY ANABELLE Administration Furosemide 20 mg 10/05/16 14:00 10/07/16 06:59 Lasix Injection - IVPUSH 20 mg BID@0600,1400 ANABELLE Administration Heparin Sodium (Porcine) 5,000 unit 10/04/16 14:45 10/07/16 07:00 Heparin - SQ 5,000 unit TID ANABELLE Administration Magnesium Oxide 400 mg 10/05/16 10:00 10/06/16 09:04 Mag-Ox - PO 400 mg DAILY ANABELLE Administration Metoprolol Succinate 12.5 mg 10/06/16 10:30 10/06/16 11:39 Toprol Xl - PO 12.5 mg DAILY ANABELLE Administration Nystatin 1 applic 10/04/16 22:00 10/06/16 21:07 Nystop Powder - TP 1 applic BID ANABELLE Administration Quetiapine Fumarate 25 mg 10/06/16 22:00 10/06/16 21:07 Seroquel - PO 25 mg HS ANABELLE Administration ASSESSMENT/PLAN: 86 year old female with pmh of Dementia, COPD on intermittent home O2, CHF, CAD , CKD, Fall who lives alone presented to the ED with her daughter s/p fall unwitnessed fall. Pt was found to have comminuted fracture in left pelvic bone and non displaced fracture of mid anterior ischium. Unwitnessed Fall r/o Syncope Syncope can due by multiple causes including orthostatic, cardiac arrhythmia, mechanical cardiac (Aortic Stenosis), orthostatic, Vasovagal. Seizure is unlikely due to lack of lip/tongue biting, incontinence, post ictal phase when found by daughter. It may have been a mechanical fall. Consider acute hypoglycemia, medication effect, dehydration, electrolytes imbalance, UTI and other infections. Also have to worry about trauma from fall. CT head showed nothing acute CT C-spine was negative for fracture bit showed emphysema, moderate left pleural effusion. Recent echocardiogram done at Dr Farley [facility]. Echo from last year showed LV nl size, LV syst function mod reduced, Mod global hypokinesis, sever pulm HTN, RSVP >60, mod TR and MR. Aortic mean pressure gradient =36, aortic valve 0.3cm sq Telemetry monitoring Consider cardiology consult Dr Farley Comminuted fracture in left pelvic bone and non displaced fracture of mid anterior ischium CT hip and CT lower ext showed fracture Consult ortho Dr Hager, Pt seen by Dr Morris, No surgery needed Weight bearing as tolerated pain control Physical therapy eval irregular heart rhythm Sinus arrhythmia ? Tachycardia better controlled with metoprolol Elevated troponins rt Enzymes leakage from CHF//cardiomyopathy NO ACS, no chest pain, sob, palpitation EKg with junctional rhythm 99 T-wave inversion in leads V4 to V6, T wave flattening in leads II, III, AvF, no major changes from last admission Troponins stable 0.11, 0.12, 0.[address] Farley CHF/CAD Pt has mild JVD, lower ext edema and crackle Prior Echo showed Normal LV size, LV systolic function moderately reduced, Moderate global hypokinesis. Severe Aortic stenosis with aortic mean pressure gradient=36. Aortic valve area 0.3 cm sq. Moderate MR, TR, RVSP more than 60, severe pulm HTN. Was on lasix, hold due to increasing Cr, BUN cardiology consult ANGELIKA on CKD Cr 2.2 Likely increased from Lasix baseline to 1.4-1.6 in last admission in 2015 Continue to monitor BMP Hold lasix for today, may resume PO in am Dementia/delirium On restraint Please avoid restaraint Was calm by the time of examination Haldol prn if recurrent episode of agitation Seroquel QHS Candidal intertrigo major improvement to redness and surface covered On nystatin powder BID, continue keep perineum dry, clean, free of urine and stool COPD Albuterol PRN FEN Fluid: none Electrolytes: none Nutrition: none DVT prophylaxis: Heparin SQ 5000 U q8h Disposition. keep in telemetry off restraint for 24 hours, pending PT eval for possible SNF placement on discharge Visit type - Emergency Visit Emergency Visit: Yes ED Registration Date: 10/04/16 Care time: The patient presented to the Emergency Department on the above date and was hospitalized for further evaluation of their emergent condition. - New Patient This patient is new to me today: No - Critical Care Critical Care patient: No - Discharge Referral Referred to [facility] Med P.C.: No
[2016-10-07] MEDS: MAGNESIUM OXIDE 400 MG TABLET (FP) PO SCH (10:50)
[2016-10-07] MEDS: NYSTATIN POWDER 100,000 UNITS/GM - 15 GM TOPICAL POWDER TP SCH ×2 (10:50→22:09)
[2016-10-07] MEDS: ASPIRIN COATED 81 MG TABLET.EC PO SCH (10:50)
[2016-10-07] MEDS: METOPROLOL SUCCINATE 25 MG TAB.SR.24H (FP) PO SCH (10:51)
--- NOTE | 2016-10-07 14:15 | PN ---
Teaching Attending Note Name of Resident: David Prado ATTENDING PHYSICIAN STATEMENT I saw and evaluated the patient. I reviewed the resident's note and discussed the case with the resident. I agree with the resident's findings and plan as documented. SUBJECTIVE:asymptomatic. denies CP, SOB,fever, chills, N/V/C/D or hip pain OBJECTIVE: Last Vital Signs Temp Pulse Resp BP Pulse Ox 97.8 F 80 20 110/54 96 10/07/16 10:28 10/07/16 10:28 10/07/16 09:00 10/07/16 10:28 10/07/16 09:00 Intake & Output 10/04/16 10/05/16 10/06/16 10/07/16 23:59 23:59 23:59 23:59 Intake Total 240 450 200 Output Total 2 Balance 240 450 198 Weight 125 lb 111 lb 6.4 oz 124 lb 9.6 oz 127 lb 9.6 oz General NAD confused oriented to self CV S1 S2 RRR pansystolic murmur Lungs decreased breath sounds L base no wheezing/rales/rhonchi Extremities 1+ pitting edema ASSESSMENT AND PLAN: 86yo F wtih PMH Dementia, COPD on intermittent home O2, CHF, CAD, CKD, Fall presented to the ER and was admitted for further evaluation of their emergent condition 1. Unwitnessed fall- unable to r/o syncope. orthostatics negative. no repeated NSVT noted on the monitor, started on betablocker and tolerating well. titrate as tolerated by BP 2. Acute on chronic systolic CHF-continues to require diuresis however worsening kidney function likely lasix induced. will hold lasix now. repeat kidney function to evaluate if lasix can be given. daily weights. 3. Elevated tropinin- likely leak. was elevated last year when here for similar presentation. no EKG changes. on asa 4. Pelvic fracture- no intervention at this time. appears to be in pain but does not request pain medications. Cont start tyelnol q8H standing. WBAT per ortho. PT eval. will require RODRIGO on discharge 5. dementia with agitation- started on seroquel with improvement. continues to have some periods of agitation. attempt to d/c restraints. cont seroquel QHS. 6. Acute on CKD- baseline 1.6. trending up likely medication induced. as presented with near normal kidney function. renal u/s ordered to r/o obstruction. monitor UOP. 7. COPD on home O2- not currently on oxygen. will have her evaluated prior to discharge. nebs prn 8. DVT ppx- hep sq
--- NOTE | 2016-10-07 17:08 | PN ---
Progress Note (short form) - Note Progress Note: ORTHOPEDICALLY STABLE PLAN: WBAT, DC PLANNING
[2016-10-07 21:32] LABS: URINE APPEARANCE CLEAR; URINE BILIRUBIN NEGATIVE (NEGATIVE); URINE BLOOD NEGATIVE (NEGATIVE); URINE COLOR YELLOW; URINE GLUCOSE (UA) NEGATIVE (NEGATIVE); URINE KETONE NEGATIVE (NEGATIVE); URINE NITRITE NEGATIVE (NEGATIVE); URINE PROTEIN NEGATIVE (NEGATIVE); URINE UROBILINOGEN NEGATIVE E.U./dl (0.2-1.0)
[2016-10-07 21:33] LABS: URINE LEUK ESTERASE 3+ (NEGATIVE)
[2016-10-07] MEDS: QUEtiapine FUMARATE 25 MG TABLET (FP) PO SCH (22:01)
[2016-10-07 22:09] LABS: URINE HYALINE CAST 5 /lpf; URINE MUCUS RARE; URINE RBC 2 /hpf (0-3); URINE WBC 50 /hpf (3-5)
[2016-10-08] MEDS: HEPARIN NA (PORCINE) 5,000 UNITS/ML 1ML VIAL SQ SCH ×3 (05:45→22:02)
[2016-10-08] MEDS: ACETAMINOPHEN 325 MG TABLET (FP) PO SCH ×3 (05:45→22:03)
[2016-10-08 07:28] LABS: CALCIUM 8.2 mg/dL (8.5-10.1)
[2016-10-08 07:29] LABS: CREATININE 2.1 mg/dL (0.55-1.02)
[2016-10-08] MEDS: METOPROLOL SUCCINATE 25 MG TAB.SR.24H (FP) PO SCH (09:52)
[2016-10-08] MEDS: ASPIRIN COATED 81 MG TABLET.EC PO SCH (09:52)
[2016-10-08] MEDS: MAGNESIUM OXIDE 400 MG TABLET (FP) PO SCH (09:52)
[2016-10-08] MEDS: NYSTATIN POWDER 100,000 UNITS/GM - 15 GM TOPICAL POWDER TP SCH ×2 (09:53→22:03)
--- NOTE | 2016-10-08 10:57 | PN ---
Progress Note (short form) - Note Progress Note: Chief Complaint: , chf History of Present Illness: sitting in wheelchair near nurse's station; denies cp, sob, palpit, dizzy (? reliable). feels well, wants to go home. Current Medications Acetaminophen (Tylenol -) 650 mg PO Q4H PRN PRN Reason: FEVER OR PAIN Last Admin: 10/06/16 16:23 Dose: 650 mg Acetaminophen (Tylenol -) 650 mg PO Q8H [facility] Last Admin: 10/08/16 05:45 Dose: 650 mg Albuterol Sulfate (Ventolin Hfa Inhaler -) 1 puff IH Q4H PRN PRN Reason: WHEEZING Aspirin (Ecotrin -) 81 mg PO DAILY [facility] Last Admin: 10/08/16 09:52 Dose: 81 mg Heparin Sodium (Porcine) (Heparin -) 5,000 unit SQ TID [facility] Last Admin: 10/08/16 05:45 Dose: 5,000 unit Magnesium Oxide (Mag-Ox -) 400 mg PO DAILY [facility] Last Admin: 10/08/16 09:52 Dose: 400 mg Metoprolol Succinate (Toprol Xl -) 12.5 mg PO DAILY [facility] Last Admin: 10/08/16 09:52 Dose: 12.5 mg Nystatin (Nystop Powder -) 1 applic TP BID [facility] Last Admin: 10/08/16 09:53 Dose: 1 applic Quetiapine Fumarate (Seroquel -) 25 mg PO HS [facility] Last Admin: 10/07/16 22:01 Dose: 25 mg Vital Signs - 24 hr 10/07/16 10/07/16 10/07/16 15:23 17:00 21:00 Temperature 97.6 F 98.8 F 97.5 F L Pulse Rate 86 93 H 88 Respiratory 22 18 20 Rate Blood Pressure 108/53 111/54 113/59 O2 Sat by Pulse 94 L Oximetry (%) 10/08/16 05:00 Temperature 97.6 F Pulse Rate 90 Respiratory 18 Rate Blood Pressure 105/71 O2 Sat by Pulse Oximetry (%) Intake & Output 10/06/16 10/07/16 10/08/16 10/09/16 07:59 07:59 07:59 07:59 Intake Total 450 200 130 Output Total 2 100 Balance 448 200 30 Weight 124 lb 9.6 oz 127 lb 9.6 oz 127 lb 9.6 oz Constitutional: Yes: Well Nourished, No Distress, Calm Cardiovascular: Yes: Regular Rate and Rhythm, Murmur (soft syst murmur lusb), S1 , S2. No: Gallop Respiratory: Yes: Regular, bibasilar dullness, L>R No: Accessory Muscle Use Extremities: No: Cold Edema: Yes (1+ ankles and dependent portion of thigh) Neurological: Yes: Alert. No: Seizure Psychiatric: No: Agitated Labs: CBC, BMP 10/05/16 05:35 10/08/16 05:47 - ....Imaging EKG: Other (tele: NSR with APCs. intermittent svt. 3 b NSVT x 1) Assessment/Plan Echo 09/2016: nl lv size, global HK, lvef 35-40, g2dd, nl rv, mild lae, sev , mild mr, mod tr, mod phtn chest CT 10/07/16: scarring at left base with stable emphysematous chagnes. Moderate left sided effusion, small rt sided effusion. AV, coronary calcifications. 86-year-old with h/o severe and cardiomyopathy, presumed CAD, emphysema , CKD , and dementia, who presents today s/p fall Fall vs ? 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 - Patient volume overloaded and in heart failure exacerbation with pulmonary edema/effusions on CXR, +JVD on admit - started lasix 20 iv bid 10/05 and low dose bb. - 10/06: bun/creat up slightly, wt inaccurate (111 to 124 overnight) -10/07: wt up to 127, bun/creat signif worse - 10/08 ct chest confirms pleural effusions. 1+ dependent edema remains in LE but signifcantly improved. Patient overall asx and 97% on RA. bun/cr stable after lasix 20 mg IV x 1 yesterday, would repeat again today and then can d/c home on prior outpatient lasix regimen. ANGELIKA on CKD: -baseline creat 1.6; -was 1.7 on admit--bun and creat both liu on bid lasix dosing. Overall stable on daily IV dosing. VTach: -intermittent rare NSVT. and svt -low dose BB as bp permits -K and Mag good, replete prn per usual protocol possible cad: - During admit 10/2015 for chf/ pt had mildly elevated trop, in non-ACS picture (flat trend)--likely secondary to hypoperfusion or transient supply/ demand imbalance or incr myocardial wall tension from severe - current intermediate troponin elevation, also with flat trend, ECG without ischemic changes--no concern clinically for ACS here - con't asa 81. low dose bb. - Currently no anginal sxs and able to enjoy her senior center activities and with her baseline dementia further ischemic workup unlikely to provide significant benefit. Monitor for now. copd - per pmd pre-operative CV eval (pelvic fracture): - very hi risk for periop CV events given severe with associated LV syst dysfunction and acute chf
--- NOTE | 2016-10-08 14:18 | PN ---
<Chava Wilcox - Last Filed: 10/08/16 15:58> Physical Exam: ATTENDING PHYSICIAN STATEMENT I saw and evaluated the patient. I reviewed the resident's note and discussed the case with the resident. I agree with the resident's findings and plan as documented. SUBJECTIVE: seen and evaluated at the bedside OBJECTIVE: mild agitation demending that she be discharged home ASSESSMENT AND PLAN: 86 year old female with pmh of Dementia, COPD on intermittent home O2, CHF, CAD , CKD, Fall who lives alone presented to the ED with her daughter s/p fall unwitnessed fall. Pt was found to have comminuted fracture in left pelvic bone and non displaced fracture of mid anterior ischium -agree with no surgical intervention as per ortho attending recs -was found to be volume overloaded and was being diuresed with lasix 20 BID which was changed to QD as creat became elevated -will trend creat and if improves with restart home dose of 20 PO -for subacute rehab placement when bed is available <David Prado - Last Filed: 10/08/16 18:32> Physical Exam: SUBJECTIVE: Patient seen and examined Pt si confused wants to go home getting out bed without assist no chest pain, palpitation, sob on fever or chills OBJECTIVE: Vital Signs Period Temp Pulse Resp BP Sys/Hyman Pulse Ox Last 24 Hr 97.5 F-98.8 F 82-93 18-22 99-113/53-71 94-94 GENERAL: Awake, alert, and oriented to person only, in no acute distress. HEAD: Normal with no signs of trauma. LUNGS: Breath sounds equal, clear to auscultation bilaterally. No wheezes, No accessory muscle use. Minimal B/l crackles in lower lung arciniega HEART: Regular rate and rhythm, normal S1 and S2 with pansystolic murmur 3/6, rub or gallop. ABDOMEN: Soft, nontender, not distended, normoactive bowel sounds, no guarding, no rebound, no masses. No hepatomegaly or splenomegaly. MUSCULOSKELETAL: Normal range of motion at all joints. No bony deformities or tenderness. No CVA tenderness. UPPER EXTREMITIES: 2+ pulses, warm, well-perfused. No cyanosis. No clubbing. No peripheral edema. LOWER EXTREMITIES: 2+ pulses, warm, well-perfused. No calf tenderness. b/l lower ext edma 2+. Limited rom in b/l hips. NEUROLOGICAL: Alert, awake, oriented to person, not to time, place. forgetful. moves all ext. no focal weakness, PSYCHIATRIC: Cooperative. Good eye contact. Appropriate mood and affect. SKIN: Warm, dry,poor skin turgor, rashes in lower abdomen and perineum area improving and receding Laboratory Results - last 24 hr 10/07/16 10/07/16 10/07/16 15:44 20:30 23:07 Sodium Potassium Chloride Carbon Dioxide Anion Gap BUN Creatinine POC Glucometer 98 107 Random Glucose Calcium Urine Color Yellow Urine Appearance Clear Urine pH 5.0 Ur Specific [place] 1.011 Urine Protein Negative Urine Glucose (UA) Negative Urine Ketones Negative Urine Blood Negative Urine Nitrite Negative Urine Bilirubin Negative Urine Urobilinogen Negative Ur Leukocyte Esterase 3+ H D Urine RBC 2 Urine WBC 50 Ur Epithelial Cells Rare Hyaline Casts 5 Urine Mucus Rare 10/08/16 10/08/16 05:27 05:47 Sodium 138 Potassium 4.0 Chloride 101 Carbon Dioxide 25 Anion Gap 12 BUN 49 H Creatinine 2.1 H POC Glucometer 96 Random Glucose 91 Calcium 8.2 L Urine Color Urine Appearance Urine pH Ur Specific [place] Urine Protein Urine Glucose (UA) Urine Ketones Urine Blood Urine Nitrite Urine Bilirubin Urine Urobilinogen Ur Leukocyte Esterase Urine RBC Urine WBC Ur Epithelial Cells Hyaline Casts Urine Mucus Active Medications Generic Name Dose Route Start Last Admin Trade Name Freq PRN Reason Stop Dose Admin Acetaminophen 650 mg 10/06/16 07:49 10/06/16 16:23 Tylenol - PO 650 mg Q4H PRN Administration FEVER OR PAIN Acetaminophen 650 mg 10/06/16 14:00 10/08/16 05:45 Tylenol - PO 650 mg Q8H ANABELLE Administration Albuterol Sulfate 1 puff 10/04/16 14:25 Ventolin Hfa Inhaler - IH Q4H PRN WHEEZING Aspirin 81 mg 10/05/16 12:15 10/08/16 09:52 Ecotrin - PO 81 mg DAILY ANABELLE Administration Heparin Sodium (Porcine) 5,000 unit 10/04/16 14:45 10/08/16 05:45 Heparin - SQ 5,000 unit TID ANABELLE Administration Magnesium Oxide 400 mg 10/05/16 10:00 10/08/16 09:52 Mag-Ox - PO 400 mg DAILY ANABELLE Administration Metoprolol Succinate 12.5 mg 10/06/16 10:30 10/08/16 09:52 Toprol Xl - PO 12.5 mg DAILY ANABELLE Administration Nystatin 1 applic 10/04/16 22:00 10/08/16 09:53 Nystop Powder - TP 1 applic BID ANABELLE Administration Quetiapine Fumarate 25 mg 10/06/16 22:00 10/07/16 22:01 Seroquel - PO 25 mg HS ANABELLE Administration CT head showed nothing acute CT C-spine was negative for fracture bit showed emphysema, moderate left pleural effusion. Echo from last year showed LV nl size, LV syst function mod reduced, Mod global hypokinesis, sever pulm HTN, RSVP >60, mod TR and MR. Aortic mean pressure gradient =36, aortic valve 0.3cm sq ASSESSMENT/PLAN: 86 year old female with pmh of Dementia, COPD on intermittent home O2, CHF, CAD , CKD, Fall who lives alone presented to the ED with her daughter s/p fall unwitnessed fall. Pt was found to have comminuted fracture in left pelvic bone and non displaced fracture of mid anterior ischium. Unwitnessed Fall r/o Syncope Syncope can due by multiple causes including orthostatic, cardiac arrhythmia, mechanical cardiac (Aortic Stenosis), orthostatic, Vasovagal. Seizure is unlikely due to lack of lip/tongue biting, incontinence, post ictal phase when found by daughter. It may have been a mechanical fall. Consider acute hypoglycemia, medication effect, dehydration, electrolytes imbalance, UTI and other infections. Also have to worry about trauma from fall. Telemetry monitoring, no event Consider cardiology consult Dr Farley Comminuted fracture in left pelvic bone and non displaced fracture of mid anterior ischium CT hip and CT lower ext showed fracture Consult ortho Dr Hager, Pt seen by Dr Morris, No surgery needed Weight bearing as tolerated pain control Physical therapy eval irregular heart rhythm Sinus arrhythmia ? controlled with metoprolol Elevated troponins rt Enzymes leakage from CHF//cardiomyopathy NO ACS, no chest pain, sob, palpitation EKg with junctional rhythm 99 T-wave inversion in leads V4 to V6, T wave flattening in leads II, III, AvF, no major changes from last admission Troponins stable 0.11, 0.12, 0.[address] Farley CHF/CAD Pt has mild JVD, lower ext edema and crackle Prior Echo showed Normal LV size, LV systolic function moderately reduced, Moderate global hypokinesis. Severe Aortic stenosis with aortic mean pressure gradient=36. Aortic valve area 0.3 cm sq. Moderate MR, TR, RVSP more than 60, severe pulm HTN. Was on lasix, hold due to increasing Cr, BUN cardiology consult ANGELIKA on CKD Cr 2.1 Likely increased from Lasix baseline to 1.4-1.6 in last admission in 2015 Continue to monitor BMP Hold lasix for today, may resume PO in am Dementia/delirium On restraint Please avoid restraint Was calm by the time of examination Haldol prn if recurrent episode of agitation Seroquel QHS Candidal intertrigo major improvement to redness and surface covered On nystatin powder BID, continue keep perineum dry, clean, free of urine and stool COPD Albuterol PRN FEN Fluid: none Electrolytes: none Nutrition: none DVT prophylaxis: Heparin SQ 5000 U q8h Disposition. keep in telemetry off restraint for 24 hours, PT eval for SNF placement on discharge Visit type - Emergency Visit Emergency Visit: Yes ED Registration Date: 10/04/16 Care time: The patient presented to the Emergency Department on the above date and was hospitalized for further evaluation of their emergent condition. - New Patient This patient is new to me today: No - Critical Care Critical Care patient: No - Discharge Referral Referred to [facility] Med [facility]C.: No
[2016-10-08] MEDS ORDERED: HALOPERIDOL 2 MG TABLET PO PRN (14:25)
[2016-10-08] MEDS ORDERED: HALOPERIDOL 1 MG TABLET (FP) PO PRN (15:54)
[2016-10-08] MEDS: QUEtiapine FUMARATE 25 MG TABLET (FP) PO SCH (22:02)
[2016-10-09] MEDS: ACETAMINOPHEN 325 MG TABLET (FP) PO SCH (05:50)
[2016-10-09] MEDS: HEPARIN NA (PORCINE) 5,000 UNITS/ML 1ML VIAL SQ SCH (05:50)
[2016-10-09 06:48] LABS: MCH 29.7 pg (25.7-33.7); MEAN CELL VOLUME 92.9 fl (80-96); MEAN PLT VOLUME 9.1 fl (7.5-11.1); PLATELET COUNT 206 K/MM3 (134-434); RDW 19.8 % (11.6-15.6); WHITE BLOOD COUNT 5.7 K/mm3 (4.0-10.0)
[2016-10-09 07:10] LABS: CALCIUM 8.3 mg/dL (8.5-10.1); CREATININE 1.9 mg/dL (0.55-1.02)
[2016-10-09 07:15] VITALS: BP 109/55; PULSE 79; TEMP 97.5
--- NOTE | 2016-10-09 09:34 | DS ---
Physical Exam: ATTENDING PHYSICIAN STATEMENT I saw and evaluated the patient. I reviewed the resident's note and discussed the case with the resident. I agree with the resident's findings and plan as documented. SUBJECTIVE: seen and evaluated at the bedside OBJECTIVE: mild agitation demending that she be discharged home ASSESSMENT AND PLAN: 86 year old female with pmh of Dementia, COPD on intermittent home O2, CHF, CAD , CKD, Fall who lives alone presented to the ED with her daughter s/p fall unwitnessed fall. Pt was found to have comminuted fracture in left pelvic bone and non displaced fracture of mid anterior ischium -agree with no surgical intervention as per ortho attending recs -was found to be volume overloaded and was being diuresed with lasix 20 BID which was changed to QD as creat became elevated -restart home dose of 20 PO -for subacute rehab placement when bed is available <Chava Wilcox - Last Filed: 10/09/16 13:41> Physical Exam: SUBJECTIVE: Patient seen and examined OBJECTIVE: Vital Signs Period Temp Pulse Resp BP Sys/Hyman Pulse Ox Last 24 Hr 97.3 F-98.8 F 79-89 18-20 97-116/53-68 96-96 PHYSICAL EXAM GENERAL: Awake, alert, and oriented to person only, in no acute distress. HEAD: Normal with no signs of trauma. LUNGS: Breath sounds equal, clear to auscultation bilaterally. No wheezes, No accessory muscle use. Minimal B/l crackles in lower lung arciniega HEART: Regular rate and rhythm, normal S1 and S2 with pansystolic murmur 3/6, rub or gallop. ABDOMEN: Soft, nontender, not distended, normoactive bowel sounds, no guarding, no rebound, no masses. No hepatomegaly or splenomegaly. MUSCULOSKELETAL: Normal range of motion at all joints. No bony deformities or tenderness. No CVA tenderness. UPPER EXTREMITIES: 2+ pulses, warm, well-perfused. No cyanosis. No clubbing. No peripheral edema. LOWER EXTREMITIES: 2+ pulses, warm, well-perfused. No calf tenderness. b/l lower ext edma 2+. Limited rom in b/l hips. NEUROLOGICAL: Alert, awake, oriented to person, not to time, place. forgetful. moves all ext. no focal weakness, PSYCHIATRIC: Cooperative. Good eye contact. Appropriate mood and affect. SKIN: Warm, dry,poor skin turgor, rashes in lower abdomen and perineum area improving and receding LABS Laboratory Results - last 24 hr 10/09/16 10/09/16 10/09/16 05:35 05:35 05:47 WBC 5.7 RBC 3.38 L Hgb 10.0 L D Hct 31.4 L MCV 92.9 MCHC 32.0 RDW 19.8 H Plt Count 206 D MPV 9.1 Sodium 140 Potassium 3.6 Chloride 102 Carbon Dioxide 30 Anion Gap 8 BUN 51 H Creatinine 1.9 H POC Glucometer 142 Random Glucose 89 Calcium 8.3 L CBC, BMP 10/09/16 05:35 10/09/16 05:35 CT head showed nothing acute CT C-spine was negative for fracture bit showed emphysema, moderate left pleural effusion. Echo from last year showed LV nl size, LV syst function mod reduced, Mod global hypokinesis, sever pulm HTN, RSVP >60, mod TR and MR. Aortic mean pressure gradient =36, aortic valve 0.3cm sq Ekg junctional rhythm 99 T-wave inversion in leads V4 to V6, T wave flattening in leads II, III, AvF, HOSPITAL COURSE: Date of Admission:10/04/16 86 year old female with pmh of Dementia, COPD on intermittent home O2, CHF, CAD , CKD, Fall who lives alone presnted to the ED s/p fall last night. the fall was unwitnessed, the patient press the panic button and the companied notified the daughter. Upon arrival, the daughter found the patient on the floor with bruises in left hand and left check. The patient was awake, alert and seems to be at baseline therefore the daughter did not bring her to the emergency room. This morning however, the patient was unable to walk so the daughter brought to the ED. the patient does not recall the event prior to the fall, it is unknown if the fall was mechanical or if the patient lost consciousness. The patient did not have any episode of incontinence when she was found by daughter, she was not lethargic. The patient currently denies any chest pain, palpitation, shortness of breath, no dizziness or confusion, no changes in vision, no numbness or tingling, no back pain, no dysarthria. ER course was notable for: (1) XRay left hip, CT head, CT cspine, CT facial bone, Ct lower ext, CT pelvis 86 year old female with pmh of Dementia, COPD on intermittent home O2, CHF, CAD , CKD, Fall who lives alone presented to the ED with her daughter s/p fall unwitnessed fall. Pt was found to have comminuted fracture in left pelvic bone and non displaced fracture of mid anterior ischium. Unwitnessed Fall r/o Syncope. Syncope can due by multiple causes including orthostatic, cardiac arrhythmia, mechanical cardiac (Aortic Stenosis), Vasovagal. Seizure is unlikely due to lack of lip/tongue biting, incontinence, post ictal phase when found by daughter. It may have been a mechanical fall. We also considered acute hypoglycemia, medication effect, dehydration, electrolytes imbalance, UTI and other infections. Pt remained on Telemetry monitoring and there was no event. Cardiology was consulted with Dr Farley. Pt had a Comminuted fracture in left pelvic bone and non displaced fracture of mid anterior ischium seen on CT hip and CT lower extremities. Orthopedist, Dr Hager, was consulted. Pt was seen by Dr Morris, No surgery needed. Weight bearing as tolerated. Pain was controlled and Pt worked with Physical therapy. During the stay Pt had irregular heart rhythm, it was Sinus arrhythmia/Tachycardia, It was controlled with metoprolol. Pt also had Elevated troponins rt Enzymes leakage from CHF//cardiomyopathy. NO ACS, no chest pain, sob, palpitation, EKg showed no major changes from last admission. We trended the Troponins, it was stable at 0.11, 0.12, 0.12. Pt was in mild CHF exacerbation. Pt has mild JVD, lower ext edema and crackle Prior Echo showed Normal LV size, LV systolic function moderately reduced, Moderate global hypokinesis. Severe Aortic stenosis with aortic mean pressure gradient=36. Aortic valve area 0.3 cm sq. Moderate MR, TR, RVSP more than 60, severe pulm HTN. Pt was placed on Lasix crackles and lower ext swelling improved. With the Lasix Pt developed ANGELIKA on CKD, creatine peaked at Cr 2.2, Likely increased from Lasix, baseline to 1.4-1.6 in last admission in 2016. Lasix was held from one day. It was resumed on discharge day. Pt has Dementia/ delirium, was on restraint for couple of days, she was started on Seroquel qHS and Haldol Prn. Pt had Candidal intertrigo. After keeping perineum dry, clean, free of urine and stool, started the pt on Nystatin Powder BID it showed major improvement to redness and surface covered. Pt had h/o of but was not in acute exacerbation during the hospital stay. Date of Discharge: 10/09/16 Minutes to complete discharge: 45 <David Prado - Last Filed: 10/10/16 17:34> Discharge Summary Current Active Problems Syncope (Acute) - Home Medications Comprehensive Discharge Medication List: Ambulatory Orders Albuterol Sulfate [Proair Respiclick] 90 mcg IH Q4H PRN 10/27/15 Aspirin [ASA -] 81 mg PO DAILY 10/27/15 Furosemide [Lasix -] 20 mg PO DAILY #30 tablet 11/01/15 Magnesium Oxide 400 mg PO DAILY #14 tablet 11/01/15 Clotrimazole 15 gm TP DAILY 10/04/16 Metoprolol Succinate [Toprol XL -] 12.5 mg PO DAILY #30 tab 10/09/16 Nystatin Powder [Nystop Powder -] 1 applic TP BID #1 bottle 10/09/16 Quetiapine Fumarate [Seroquel -] 25 mg PO HS #30 tablet 10/09/16 <Chava Wilcox - Last Filed: 10/09/16 13:41> Reason For Visit: ACUTE KIDNEY INJURY,SYNCOPE Current Active Problems Syncope (Acute) - Home Medications Comprehensive Discharge Medication List: Ambulatory Orders Albuterol Sulfate [Proair Respiclick] 90 mcg IH Q4H PRN 10/27/15 Aspirin [ASA -] 81 mg PO DAILY 10/27/15 Furosemide [Lasix -] 20 mg PO DAILY #30 tablet 11/01/15 Magnesium Oxide 400 mg PO DAILY #14 tablet 11/01/15 Clotrimazole 15 gm TP DAILY 10/04/16 Metoprolol Succinate [Toprol XL -] 12.5 mg PO DAILY #30 tab 10/09/16 Nystatin Powder [Nystop Powder -] 1 applic TP BID #1 bottle 10/09/16 Quetiapine Fumarate [Seroquel -] 25 mg PO HS #30 tablet 10/09/16 <David Prado - Last Filed: 10/10/16 17:34> Condition: Stable - Instructions Diet, Activity, Other Instructions: Please see PCP in a week. If your symptoms worsen come back to Emergency Room as soon as possible. Us a walker or cane when ambulating. Weight bearing as tolerated Discharge Home Cardiac diet Follow up with Dr Morris, orthopedist within 1 week Follow up with Dr Farley, cardiology within 1 week Follow up with PCP within 1 week Referrals: Nirmal Farley MD [Staff Physician] - 1 Week Ton Morris MD [Staff Physician] - 1 Week Disposition: [facility] This patient is new to me today: No Emergency Visit: Yes ED Registration Date: 10/04/16 Care time: The patient presented to the Emergency Department on the above date and was hospitalized for further evaluation of their emergent condition. Critical Care patient: No - Discharge Referral Referred to [facility] No <David Prado - Last Filed: 10/10/16 17:34>
[2016-10-09] MEDS ORDERED: FUROSEMIDE 20 MG TABLET (FP) PO SCH (10:00)
[2016-10-09] MEDS: ASPIRIN COATED 81 MG TABLET.EC PO SCH (10:02)
[2016-10-09] MEDS: MAGNESIUM OXIDE 400 MG TABLET (FP) PO SCH (10:02)
[2016-10-09] MEDS: METOPROLOL SUCCINATE 25 MG TAB.SR.24H (FP) PO SCH (10:03)
[2016-10-09] MEDS: NYSTATIN POWDER 100,000 UNITS/GM - 15 GM TOPICAL POWDER TP SCH (10:03)
--- NOTE | 2016-10-09 10:48 | PN ---
Progress Note (short form) - Note Progress Note: Chief Complaint: , chf History of Present Illness: denies cp, sob, palpit, dizzy (? reliable). feels well, wants to go home. Current Medications Generic Name Dose Route Start Last Admin Trade Name Freq PRN Reason Stop Dose Admin Acetaminophen 650 mg 10/06/16 07:49 10/06/16 16:23 Tylenol - PO 650 mg Q4H PRN Administration FEVER OR PAIN Acetaminophen 650 mg 10/06/16 14:00 10/09/16 05:50 Tylenol - PO Not Given Q8H ANABELLE Albuterol Sulfate 1 puff 10/04/16 14:25 Ventolin Hfa Inhaler - IH Q4H PRN WHEEZING Aspirin 81 mg 10/05/16 12:15 10/09/16 10:02 Ecotrin - PO 81 mg DAILY ANABELLE Administration Furosemide 20 mg 10/09/16 10:00 10/09/16 10:02 Lasix - PO 20 mg DAILY ANABELLE Administration Haloperidol 2 mg 10/08/16 15:54 Haldol - PO TID PRN AGITATION Heparin Sodium (Porcine) 5,000 unit 10/04/16 14:45 10/09/16 05:50 Heparin - SQ 5,000 unit TID ANABELLE Administration Magnesium Oxide 400 mg 10/05/16 10:00 10/09/16 10:02 Mag-Ox - PO 400 mg DAILY ANABELLE Administration Metoprolol Succinate 12.5 mg 10/06/16 10:30 10/09/16 10:03 Toprol Xl - PO 12.5 mg DAILY ANABELLE Administration Nystatin 1 applic 10/04/16 22:00 10/09/16 10:03 Nystop Powder - TP 1 applic BID ANABELLE Administration Quetiapine Fumarate 25 mg 10/06/16 22:00 10/08/16 22:02 Seroquel - PO 25 mg HS ANABELLE Administration Vital Signs Period Temp Pulse Resp BP Sys/Hyman Pulse Ox Last 24 Hr 97.3 F-98.8 F 79-89 18-20 97-116/53-68 96-96 Constitutional: Yes: Well Nourished, No Distress, Calm Cardiovascular: Yes: Regular Rate and Rhythm, + murmur, S1, S2. No: Gallop Respiratory: Yes: Regular, bibasilar dullness, L>R No: Accessory Muscle Use Extremities: No: Cold Edema: trace le edema bl Neurological: Yes: Alert. No: Seizure Psychiatric: No: Agitated no jaundice diaphoresis Labs: CBC, BMP 10/09/16 05:35 10/09/16 05:35 tele: sr, occ pvcs Echo 09/2016: nl lv size, global HK, lvef 35-40, g2dd, nl rv, mild lae, sev , mild mr, mod tr, mod phtn chest CT 10/07/16: scarring at left base with stable emphysematous chagnes. Moderate left sided effusion, small rt sided effusion. AV, coronary calcifications. a/p: 86-year-old with h/o severe and cardiomyopathy, presumed CAD, emphysema , CKD, and dementia, who presents s/p fall. Fall vs ? syncope, pelvic fracture (conservative management) - unknown if mechanical or syncope/presyncope - tele w/o etiology - orthostatics normal here - PT evaluation - monitor for recurrence as outpt, could consider event monitor at that time severe , cardiomyopathy/acute syst chf: - have discussed treatment options for with son and daughter (pt with signif dementia), and they both declined invasive eval/treatment of aortic valve dz. - Patient volume overloaded and in heart failure exacerbation with pulmonary edema/effusions on CXR, +JVD on admit - started lasix 20 iv bid 10/05 and low dose bb. - 10/06: bun/creat up slightly, wt inaccurate (111 to 124 overnight) -10/07: wt up to 127, bun/creat signif worse - 10/08 ct chest confirms pleural effusions. 1+ dependent edema remains in LE but significantly improved. Patient overall asx and 97% on RA. bun/cr stable after lasix 20 mg IV x 1 yesterday, would repeat again today and then can d/c home on prior outpatient lasix regimen. -10/09: cont po lasix for maintenance ANGELIKA on CKD: -baseline creat 1.6; -was 1.7 on admit--bun and creat both liu on bid lasix dosing, now starting to improve VTach: -intermittent rare NSVT and svt -low dose BB as bp permits -K and Mag were good, replete prn possible cad: - During admit 10/2015 for chf/ pt had mildly elevated trop, in non-ACS picture (flat trend)--likely secondary to hypoperfusion or transient supply/ demand imbalance or incr myocardial wall tension from severe - current intermediate troponin elevation, also with flat trend, ECG without ischemic changes--no concern clinically for ACS here - con't asa 81. low dose bb. - Currently no anginal sxs and able to enjoy her senior center activities and with her baseline dementia further ischemic workup unlikely to provide significant benefit. Monitor for now. copd - per pmd cardiac ruggiero stable for dc, outpt f/u 1-2 weeks to assess vol status
--- NOTE | 2016-10-09 11:48 | PN ---
Progress Note (short form) - Note Progress Note: Pt seen and examined. She has a pelvic fracture. Has been ambulating with P.T., doing fine. Rec - con't P.T., ambulate, WBAT
== END 2016-10-09 13:41 | DRG 535 ==
LOC: JER 08:46 → OBSVTOIN 12:55 → JERBED 12:55 → J4W 15:16
PROVIDERS: ADMIT Internal Medicine; ATTEND Internal Medicine
DX: S32.9XXA Fracture of unspecified parts of lumbosacral spine and pelvis, initial encounter for closed fracture (principal); I50.23 Acute on chronic systolic (congestive) heart failure; S32.602A Unspecified fracture of left ischium, initial encounter for closed fracture; N17.9 Acute kidney failure, unspecified; I42.9 Cardiomyopathy, unspecified; I47.2 Ventricular tachycardia; R55 Syncope and collapse; J44.9 Chronic obstructive pulmonary disease, unspecified; F03.90 Unspecified dementia, unspecified severity, without behavioral disturbance, psychotic disturbance, mood disturbance, and anxiety; I35.0 Nonrheumatic aortic (valve) stenosis; R41.0 Disorientation, unspecified; I25.10 Atherosclerotic heart disease of native coronary artery without angina pectoris; N18.9 Chronic kidney disease, unspecified; L30.4 Erythema intertrigo; Z99.81 Dependence on supplemental oxygen; Z87.891 Personal history of nicotine dependence; W06.XXXA Fall from bed, initial encounter; Y93.89 Activity, other specified; Y92.092 Bedroom in other non-institutional residence as the place of occurrence of the external cause; Y99.8 Other external cause status
CPT/HCPCS: 36415; 70450-TC; 70486-TC; 71010-TC; 71250-TC; 72125-TC; 72192-TC; 73523-TC; 73700-TC-RT; 76775-TC; 80048; 80053; 80061; 81003; 81015; 82550; 83036; 83721; 83735; 84100; 84484; 85027; 85610; 85730; 87086; 93005; 93010; 93268; 97116-GP; 97161-GP; 99282-25; J1644

== ENCOUNTER 2016-10-15 18:28 | Inpatient (IN) | payer OTHER ==
--- NOTE | 2016-10-15 18:33 | PDOC ---
History of Present Illness - History of Present Illness Initial Comments: 10/15/16 18:58 The patient is an 86 year old female with a past medical hx of COPD, O2 dependent, CHF, CAD, chronic kidney disease who presents to the ED via EMS from [facility] for evaluation of hypoglycemia and lethargic behavior. EMS reports the patient was found lethargic in the longterm. She had her blood sugar levels checked and her glucose was a 40. She was given Dextrose. Her finger stick was then a 210. The patient is reporting she feels cold. The patient was last seen in the ED on 10/04/16 for a fall and was admitted for a comminuted fracture to her left pelvic bone and a nondisplaced fracture of the anterior ischium. Social: Former smoker (2 ppd until 1989). <Gemma Rowley - Last Filed: 10/15/16 22:39> <Dana Cruz - Last Filed: 10/16/16 02:44> - General Chief Complaint: Blood Sugar Problem Stated Complaint: HYPOGLYCEMIA Time Seen by Provider: 10/15/16 18:33 Past History <Gemma Rowley - Last Filed: 10/15/16 22:39> - Past Medical History COPD: Yes (emphysema on 2lnc at home) CHF: Yes Dementia: Yes - Surgical History Cholecystectomy: Yes - Psycho/Social/Smoking Cessation Hx Anxiety: No Suicidal Ideation: No Smoking History: Former smoker Have you smoked in the past 12 months: No If you are a former smoker, when did you quit?: 1989 Hx Alcohol Use: No Drug/Substance Use Hx: No Substance Use Type: None Hx Substance Use Treatment: No <Dana Cruz - Last Filed: 10/16/16 02:44> - Past Medical History Allergies/Adverse Reactions: Allergies Allergy/AdvReac Type Severity Reaction Status Date / Time No Known Allergies Allergy Verified 10/15/16 19:28 Home Medications: Ambulatory Orders Albuterol Sulfate [Proair Respiclick] 90 mcg IH Q4H PRN 10/27/15 Aspirin [ASA -] 81 mg PO DAILY 10/27/15 Furosemide [Lasix -] 20 mg PO DAILY #30 tablet 11/01/15 Magnesium Oxide 400 mg PO DAILY #14 tablet 11/01/15 Clotrimazole 15 gm TP DAILY 10/04/16 Metoprolol Succinate [Toprol XL -] 12.5 mg PO DAILY #30 tab 10/09/16 Nystatin Powder [Nystop Powder -] 1 applic TP BID #1 bottle 10/09/16 Quetiapine Fumarate [Seroquel -] 25 mg PO HS #30 tablet 10/09/16 Review of Systems - Review of Systems Able to Perform ROS?: Yes Comments:: 10/15/16 18:58 CONSTITUTIONAL: +Lethargic, cold. Absent: fever, diaphoresis HEENT: Absent: rhinorrhea, nasal congestion, throat pain, throat swelling CARDIOVASCULAR: Absent: chest pain, syncope, palpitations, irregular heart rate RESPIRATORY: Absent: cough, shortness of breath, dyspnea with exertion, orthopnea, wheezing, stridor, hemoptysis GASTROINTESTINAL: Absent: abdominal pain, abdominal distension, nausea, vomiting, diarrhea, constipation, melena, hematochezia GENITOURINARY: Absent: dysuria, frequency, urgency, hesitancy, hematuria, flank pain, genital pain MUSCULOSKELETAL: Absent: myalgia, arthralgia, joint swelling SKIN: Absent: rash, itching, pallor NEUROLOGIC: Absent: headache, focal weakness or paresthesias, dizziness, unsteady gait, seizure, mental status changes, bladder or bowel incontinence PSYCHIATRIC: Absent: anxiety, depression, suicidal or homicidal ideation, hallucinations. <Gemma Rowley - Last Filed: 10/15/16 22:39> *Physical Exam - Physical Exam Comments: 10/15/16 18:59 GENERAL: +Mild distress, awake, cachectic. HEENT: +Dry mucous membranes. Normocephalic, atraumatic. PERRLA, EOMI. No conjunctival pallor. Sclera are non-icteric. Oropharynx is clear. NECK: Supple. Full ROM. No JVD. Carotid pulses 2+ and symmetric, without bruits. No thyromegaly. No lymphadenopathy. CARDIOVASCULAR: Regular rate and rhythm. No murmurs, rubs, or gallops. Distal pulses are 2+ and symmetric. PULMONARY: No evidence of respiratory distress. Lungs clear to auscultation bilaterally. No wheezing, rales or rhonchi. ABDOMINAL: Soft. Non-tender. Non-distended. No rebound or guarding. No organomegaly. Normoactive bowel sounds. MUSCULOSKELETAL Normal range of motion at all joints. No CVA tenderness. EXTREMITIES: +Chronic lower extremity pitting edema. No cyanosis. No clubbing. No calf tenderness. SKIN: +Jaundice. Warm and dry. NEUROLOGICAL: Alert, awake. Cranial nerves 2-12 intact. <Gemma Rowley - Last Filed: 10/15/16 22:39> Heart Score/ECG Review - ECG Impressions Comment:: 10/15/16 22:[address] Cruz Accelerated Junctional Rhythm Rate of [address] & T wave abnormality, consider inferolateral ischemia <Gemma Rowley - Last Filed: 10/15/16 22:39> ED Treatment Course - LABORATORY CBC & Chemistry Diagram: 10/15/16 20:20 10/15/16 20:20 <Gemma Rowley - Last Filed: 10/15/16 22:39> - LABORATORY CBC & Chemistry Diagram: 10/15/16 20:20 10/15/16 20:20 <Dana Cruz - Last Filed: 10/16/16 02:44> Medical Decision Making - Medical Decision Making 10/15/16 21:[address] Kincaid at 19:43, awaiting call back <Gemma Rowley - Last Filed: 10/15/16 22:39> - Critical Care Time Total Critical Care Time (minutes): 120 Critical Care Statement: The care of this patient involved high complexity decision making to prevent further life threatening deterioration of the patient 's condition and/or to evalute & treat vital organ system(s) failure or risk of failure. <Dana Cruz - Last Filed: 10/16/16 02:44> *DC/Admit/Observation/Transfer - Attestations Scribe Attestion: 10/15/16 18:58 Documentation prepared by Gemma Rowley, acting as medical device sales representative for Dana Cruz MD/. <Gemma Rowley - Last Filed: 10/15/16 22:39> - Discharge Dispostion Admit: Yes <Dana Cruz - Last Filed: 10/16/16 02:44> Diagnosis at time of Disposition: Elevated troponin, Hypoglycemia, Dehydration COPD (chronic obstructive pulmonary disease) Qualifiers: COPD type: unspecified COPD Qualified Code(s): J44.9 - Chronic obstructive pulmonary disease, unspecified - Referrals
[2016-10-15 20:35] LABS: MCH 29.6 pg (25.7-33.7); MCHC 31.8 g/dl (32.0-36.0); MEAN CELL VOLUME 93.1 fl (80-96); MEAN PLT VOLUME 9.6 fl (7.5-11.1); PLATELET COUNT 152 K/MM3 (134-434)
[2016-10-15 20:47] LABS: INR 1.71 (0.82-1.09)
[2016-10-15 21:01] LABS: ALBUMIN 2.3 g/dl (3.4-5.0); BILIRUBIN,TOTAL 4.4 mg/dL (0.2-1.0); CALCIUM 7.8 mg/dL (8.5-10.1); CREATININE 3.2 mg/dL (0.55-1.02)
[2016-10-15] MEDS ORDERED: SODIUM CHLORIDE 1,000 ML IV STA (21:07)
[2016-10-15 21:11] LABS: ANISOCYTOSIS 2+; HYPOCHROMIA 2+; METAMYELOCYTE 2 % (0-2); PLATELET COMMENT2 NO CLOTTING DETECTED; PLATELET COMMENT3 FEW LARGE PLTS; PLATELET ESTIMATE ADEQUATE (NORMAL); POIKILOCYTOSIS 1+; POLYCHROMASIA 1+
[2016-10-15 21:16] LABS: TOT PROT 5.5 g/dl (6.4-8.2)
[2016-10-15 21:21] LABS: TROPONIN I 4.28 ng/ml (0.00-0.05)
[2016-10-15] MEDS ORDERED: VANCOMYCIN 1,000 MG in DEXTROSE 5%-WATER - 250 ML IVPB ONE (21:39)
[2016-10-15] MEDS ORDERED: PIPERACILLIN/TAZOB 3.375 GM 3.375 GM in DEXTROSE 5%-WATER - 50 ML IVPB ONE (21:41)
[2016-10-15] MEDS ORDERED: LEVOFLOXACIN 500 MG IVPB 100 ML IVPB ONE ×2 (21:42→22:43)
[2016-10-15 22:00] LABS: URINE APPEARANCE CLOUDY; URINE BILIRUBIN NEGATIVE (NEGATIVE); URINE BLOOD NEGATIVE (NEGATIVE); URINE COLOR AMBER; URINE GLUCOSE (UA) NEGATIVE (NEGATIVE); URINE KETONE NEGATIVE (NEGATIVE); URINE LEUK ESTERASE NEGATIVE (NEGATIVE); URINE NITRITE NEGATIVE (NEGATIVE); URINE UROBILINOGEN 4.0 E.U/dl E.U./dl (0.2-1.0)
[2016-10-15 22:07] LABS: URINE PROTEIN 2+ (NEGATIVE)
[2016-10-15 22:13] LABS: GRANULAR CASTS 19 /lpf; URINE BACTERIA MODERATE /hpf (NONE SEEN); URINE HYALINE CAST 7 /lpf; URINE MUCUS RARE; URINE RBC 5 /hpf (0-3); URINE WBC 21 /hpf (3-5)
--- NOTE | 2016-10-15 22:40 | HP ---
CHIEF COMPLAINT: "sent from [facility] for hypoglycemia and hypotension" PCP: Dr Allison Fire Information Officer: Dr Farley HISTORY OF PRESENT ILLNESS: Patient is a 86 year old female sent for [facility] for evaluation of Lethargy. As per the EMS, patient was hypoglycemic with a blood sugar of 40 and hypotensive. She was given D50 en route and finger stick glucose was 210. Unable to obtain detailed history and ROS as patient is demented and not in the state to answer. Patient was admitted on 10/04/2016 for Comminuted fracture in left pelvic bone and non displaced fracture of mid anterior ischium and was sent to [facility] for a rehab. Within 2 weeks, patient deteriorated rapidly. While in the ED, patient was able to say few words. After transferring to the ICU, patient became less alert, hypotensive to a MAP of 40. Vasopressin was started with bolus of NS. Since patient didn't respond, she was intubated. Levophed was started. Family members were informed. Patients daughter (HCP) and son came in and mentioned that patient never wanted to be intubated. Hence, she was made DNR. Patient wanted to wait for the software developer for the last rights. Morphine drip started and is in comfort care now. Family members are at bed side. ER course was notable for: (1) Afebrile, Hypotensive 89/50; RR-32; Spo2 94 % in RA; Leukocytosis 22; creatinine 3.2/GFR-13.77; Increased liver enzymes; Increased troponin 4.28 (2) (3) IV Levofloxacin; IV NS Recent Travel: None PAST MEDICAL HISTORY: Dementia, COPD on intermittent home O2, CHF, CAD, CKD, Fall PAST SURGICAL HISTORY: Cholecystectomy Social History: Smoking: former smoker quit in 1989, used to smoked 2 pack per day throughout adulthood Alcohol: denies alcohol Drugs: denies recreational drug Family History:Dementia Allergies No Known Allergies Allergy (Verified 10/15/16 19:28) LACTOSE INTOLERANCE HOME MEDICATIONS: Home Medications Medication Instructions Recorded Albuterol Sulfate [Proair 90 mcg IH Q4H PRN 10/27/15 Respiclick] Aspirin [ASA -] 81 mg PO DAILY 10/27/15 Furosemide [Lasix -] 20 mg PO DAILY #30 tablet 11/01/15 Magnesium Oxide 400 mg PO DAILY #14 tablet 11/01/15 Clotrimazole 15 gm TP DAILY 10/04/16 Metoprolol Succinate [Toprol XL -] 12.5 mg PO DAILY #30 tab 10/09/16 Nystatin Powder [Nystop Powder -] 1 applic TP BID #1 bottle 10/09/16 Quetiapine Fumarate [Seroquel -] 25 mg PO HS #30 tablet 10/09/16 REVIEW OF SYSTEMS: Unable to obtain PHYSICAL EXAMINATION Vital Signs - 24 hr 10/15/16 18:30 Temperature 97.0 F L Pulse Rate 92 H Respiratory 32 H Rate Blood Pressure 89/50 O2 Sat by Pulse 94 L Oximetry (%) PHYSICAL FINDINGS BEFORE INTUBATION: GENERAL: Awake. HEENT: (+) Left facial contusion. PERRLA, EOMI. Moist mucosa. No JVD LUNGS: No distress, speaks full sentences, clear to auscultation bilaterally HEART: Regular rhythm, tachycardic, normal S1 and S2, no murmurs, rubs or gallops, peripheral pulses normal and equal bilaterally. ABDOMEN: Soft, nontender, normoactive bowel sounds. No guarding, no rebound. No masses EXTREMITIES: (+) Trace lower extremity pitting edema. Left shoulder contusion. Normal inspection, Normal range of motion. No clubbing or cyanosis. NEUROLOGICAL: Cranial nerves II through XII grossly intact. SKIN: Warm, Dry, normal turgor, no rashes or lesions noted. Laboratory Results - last 24 hr 10/15/16 10/15/16 10/15/16 19:17 20:20 20:20 WBC 22.0 H D RBC 3.16 L Hgb 9.4 L Hct 29.4 L MCV 93.1 MCHC 31.8 L RDW 21.0 H Plt Count 152 D MPV 9.6 Neutrophils % 72.0 Lymphocytes % 3.0 L D Monocytes % 4.0 Band Neutrophils 20.0 H Metamyelocytes 2 Platelet Estimate Adequate Platelet Comment No clotting detected Polychromasia 1+ Hypochromic-Microcytic 2+ Poikilocytosis 1+ Anisocytosis 2+ INR 1.71 H D Sodium Potassium Chloride Carbon Dioxide Anion Gap BUN Creatinine Creat Clearance w eGFR POC Glucometer [phone] Random Glucose Calcium Total Bilirubin AST ALT Alkaline Phosphatase Creatine Kinase Troponin I Total Protein Albumin Lipase Urine Color Urine Appearance Urine pH Ur Specific [place] Urine Protein Urine Glucose (UA) Urine Ketones Urine Blood Urine Nitrite Urine Bilirubin Urine Urobilinogen Ur Leukocyte Esterase Urine RBC Urine WBC Ur Epithelial Cells Urine Bacteria Hyaline Casts Granular Casts Urine Mucus 10/15/16 10/15/16 10/15/16 20:20 20:20 21:30 WBC RBC Hgb Hct MCV MCHC RDW Plt Count MPV Neutrophils % Lymphocytes % Monocytes % Band Neutrophils Metamyelocytes Platelet Estimate Platelet Comment Polychromasia Hypochromic-Microcytic Poikilocytosis Anisocytosis INR Sodium 136 Potassium 5.1 D Chloride 101 Carbon Dioxide 19 L D Anion Gap 16 BUN 71 H D Creatinine 3.2 H D Creat Clearance w eGFR 13.77 POC Glucometer Random Glucose 75 Calcium 7.8 L Total Bilirubin 4.4 H D AST 670 H D ALT 285 H D Alkaline Phosphatase 309 H D Creatine Kinase 316 H D Troponin I 4.28 H* Total Protein 5.5 L Albumin 2.3 L D Lipase 46 L Urine Color Zuly Urine Appearance Cloudy Urine pH 5.0 Ur Specific [place] 1.017 Urine Protein 2+ H Urine Glucose (UA) Negative Urine Ketones Negative Urine Blood Negative Urine Nitrite Negative Urine Bilirubin Negative Urine Urobilinogen 4.0 e.u/dl H Ur Leukocyte Esterase Negative Urine RBC 5 Urine WBC 21 Ur Epithelial Cells Rare Urine Bacteria Moderate Hyaline Casts 7 Granular Casts 19 Urine Mucus Rare Ultrasound abdomen limited right upper quadrant . Profound transaminitis The liver is 16.5 cm in length and appears, without mass or biliary duct dilation. The gallbladder is nonvisualized. The CBD is not dilated and measures4 millimeters in diameter. Right kidney is atrophic at 7.8centimeters in length, without hydronephrosis Pancreas is partially obscured, but appears normal. IMPRESSION: Normal liver. Mildly atrophic kidney. Nonvisualized gallbladder, possibly removed. ASSESSMENT/PLAN: Patient is a 86 year old female with the significant past medical history of Dementia, COPD on intermittent home O2, CHF, CAD, CKD, Fall sent for [facility] for evaluation of Lethargy. # Sepsis unknown etiology Patient presented with hypotension, tachycardia, hypoglycemia On arrival, patient was afebrile, Hypotensive 89/50; RR-32; Spo2 94 % in RA ; Leukocytosis 22; creatinine 3.2/GFR-13.77; Increased liver enzymes; Increased troponin 4.28 In the ED, patient received IV Levofloxacin; IV NS Admitted in the ICU While in the ED, patient was able to say few words. After transferring to the ICU, patient became less alert, hypotensive to a MAP of 40. Vasopressin was started with bolus of NS. Since patient didn't respond, she was intubated. Levophed was started. Family members were informed. Patients daughter (HCP) and son came in and mentioned that patient never wanted to be intubated. Hence, she was made DNR, papers signed and is in the chart. Family members wanted to wait for the software developer to come for the last rights. Morphine drip started and is in comfort care now. Family members and Orthotic Finish Grinding Technician are at bed side. No further management to be done including blood work as per the patient. Illness, Investigation and plan of care explained to the patient's family members. They verbalized understanding. Case seen and discussed with Dr. Carreno. Visit type - Emergency Visit Emergency Visit: Yes ED Registration Date: 10/15/16 Care time: The patient presented to the Emergency Department on the above date and was hospitalized for further evaluation of their emergent condition. - New Patient This patient is new to me today: Yes Date on this admission: 10/15/16 - Critical Care Critical Care patient: No
[2016-10-15] MEDS ORDERED: PIPERACILLIN/TAZOB 3.375 GM 50 ML IVPB ONE (22:43)
[2016-10-15] MEDS ORDERED: VANCOMYCIN 1 GRAM (PRE-DOCKED) 250 ML IVPB ONE (22:43)
[2016-10-15] MEDS ORDERED: SODIUM CHLORIDE 1,000 ML IV SCH (23:45)
--- NOTE | 2016-10-15 23:53 | PN ---
<Bro Carrenoony - Last Filed: 10/15/16 23:53> Teaching Attending Note Name of Resident: Syeda Maciel ATTENDING PHYSICIAN STATEMENT I saw and evaluated the patient. I reviewed the resident's note and discussed the case with the resident. I agree with the resident's findings and plan as documented. SUBJECTIVE: OBJECTIVE: ASSESSMENT AND PLAN: <AnandaScottie - Last Filed: 10/16/16 05:55> Teaching Attending Note ATTENDING PHYSICIAN STATEMENT I saw and evaluated the patient. I reviewed the resident's note and discussed the case with the resident. I agree with the resident's findings and plan as documented. SUBJECTIVE: The patient is an 86 year old female with a past medical history of COPD, O2 dependent, CHF, CAD, chronic kidney disease who presented to the ED via EMS from [facility] for evaluation of hypoglycemia and lethargic behavior. As per ED note, EMS reported that the patients blood sugar levels were checked at the [facility] and her glucose was found to be 40, she was given Dextrose and her finger stick was then found to be 210. The patient was last seen in the ED on 10/04/16 for a fall and was admitted for a comminuted fracture to her left pelvic bone and a nondisplaced fracture of the anterior ischium. History of present illness limited due to patients clinical condition. OBJECTIVE: Vital Signs: Last Vital Signs Temp Pulse Resp BP Pulse Ox 97.0 F L 84 20 121/56 95 10/15/16 18:30 10/15/16 23:42 10/15/16 23:42 10/15/16 23:42 10/15/16 23:42 Physical Exam: GENERAL: Awake. HEENT: (+) Left facial contusion. PERRLA, EOMI. Moist mucosa. No JVD LUNGS: No distress, speaks full sentences, clear to auscultation bilaterally HEART: Regular rhythm, tachycardic, normal S1 and S2, no murmurs, rubs or gallops, peripheral pulses normal and equal bilaterally. ABDOMEN: Soft, nontender, normoactive bowel sounds. No guarding, no rebound. No masses EXTREMITIES: (+) Trace lower extremity pitting edema. Left shoulder contusion. Normal inspection, Normal range of motion. No clubbing or cyanosis. NEUROLOGICAL: Cranial nerves II through XII grossly intact. SKIN: Warm, Dry, normal turgor, no rashes or lesions noted. Labs: CBCD WBC 16.7 K/mm3 (4.0-10.0) H 10/16/16 02:00 RBC 3.39 M/mm3 (3.60-5.2) L 10/16/16 02:00 Hgb 10.1 GM/dL (10.7-15.3) L 10/16/16 02:00 Hct 31.7 % (32.4-45.2) L 10/16/16 02:00 MCV 93.4 fl (80-96) 10/16/16 02:00 MCHC 31.9 g/dl (32.0-36.0) L 10/16/16 02:00 RDW 21.0 % (11.6-15.6) H 10/16/16 02:00 Plt Count 162 K/MM3 (134-434) 10/16/16 02:00 MPV 10.1 fl (7.5-11.1) 10/16/16 02:00 CMP Sodium 134 mmol/L (136-145) L 10/16/16 02:00 Potassium 5.2 mmol/L (3.5-5.1) H 10/16/16 02:00 Chloride 98 mmol/L (98-107) 10/16/16 02:00 Carbon Dioxide 11 mmol/L (21-32) L D 10/16/16 02:00 Anion Gap 25 (8-16) H 10/16/16 02:00 BUN 71 mg/dL (7-18) H 10/16/16 02:00 Creatinine 3.2 mg/dL (0.55-1.02) H 10/16/16 02:00 Creat Clearance w eGFR 13.77 (>60) 10/16/16 02:00 Calcium 7.6 mg/dL (8.5-10.1) L 10/16/16 02:00 Total Bilirubin 5.2 mg/dL (0.2-1.0) H 10/16/16 02:00 AST 942 U/L (15-37) H D 10/16/16 02:00 ALT 397 U/L (12-78) H D 10/16/16 02:00 Alkaline Phosphatase 439 U/L (45-117) H D 10/16/16 02:00 Total Protein 5.7 g/dl (6.4-8.2) L 10/16/16 02:00 Albumin 2.3 g/dl (3.4-5.0) L 10/16/16 02:00 Imagin. EXAM: Ultrasound abdomen limited right upper quadrant IMAGES: 24 INDICATION : Profound transaminitis DATE OF SERVICE: 2016-10-16 01:40:49.0 COMPARISON: none FINDINGS: The liver is 16.5 cm in length and appears, without mass or biliary duct dilation. The gallbladder is nonvisualized. The CBD is not dilated and measures4 millimeters in diameter. Right kidney is atrophic at 7.8centimeters in length, without hydronephrosis Pancreas is partially obscured , but appears normal. IMPRESSION: Normal liver. Mildly atrophic kidney. Nonvisualized gallbladder, possibly removed. THIS DOCUMENT HAS BEEN ELECTRONICALLY SIGNED Martinez Dutton MD 10/16/2016 02:24 EST 2. Chest X-ray Impression: No official read. Documentation prepared by Scottie Malave, acting as medical insurance coder for Dr. Felix Carreno MD.
--- NOTE | 2016-10-16 01:46 | CONSULT ---
Consult Consult Specialty:: Pulm/CC - History of Present Illness History of Present Illness: Pt is an 86yr old woman with PMHx including emphysema(intermittent home o2), severe aortic stenosis, cardiomyopathy, CAD, CKD and advanced dementia. Of note pt here 10/04-10/09 with fall --> pelvic fracture (head ct without noted bleed). She presents 10/15 to the ER from snf with CC of reported 40 glucose and lethargy. In the ER found to have WBC 22.0 (20 bands), INR 1.71 (ac not listed on home meds) lactic acid 6.327, bili 4.4, profound transaminites, troponin of 4.28 with TWI in I/II/V4/5/6 (my read). Initial vital signs 121/55, HR 92 RR 32 94%. Pt given Vanc/Zosyn/Levaquin and started on IVF and admitted to the ICU for further management. Upon assessment in the ICU pt is not verbally responsive , alert. ABG shows partially compensated metabolic acidosis 7.31/20.9/112/10.1. 138/99, HR 99 RR 22 afebrile orally. 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: Dementia Pulmonary: Yes: COPD Renal/: Yes: Renal Failure - Alcohol/Substance Use Hx Alcohol Use: No History of Substance Use: reports: None - Smoking History Smoking history: Former smoker Have you smoked in the past 12 months: No If you are a former smoker, when did you quit?: 1989 - Social History ADL: Support Services Home Medications - Allergies Allergies/Adverse Reactions: Allergies Allergy/AdvReac Type Severity Reaction Status Date / Time No Known Allergies Allergy Verified 10/15/16 19:28 - Home Medications Home Medications: Ambulatory Orders Albuterol Sulfate [Proair Respiclick] 90 mcg IH Q4H PRN 10/27/15 Aspirin [ASA -] 81 mg PO DAILY 10/27/15 Furosemide [Lasix -] 20 mg PO DAILY #30 tablet 11/01/15 Magnesium Oxide 400 mg PO DAILY #14 tablet 11/01/15 Clotrimazole 15 gm TP DAILY 10/04/16 Metoprolol Succinate [Toprol XL -] 12.5 mg PO DAILY #30 tab 10/09/16 Nystatin Powder [Nystop Powder -] 1 applic TP BID #1 bottle 10/09/16 Quetiapine Fumarate [Seroquel -] 25 mg PO HS #30 tablet 10/09/16 Family Disease History - Family Disease History Family History: Unable to Obtain Review of Systems Unable to obtain ROS, reason: QUENTIN Physical Exam Vital Signs: Vital Signs Period Temp Pulse Resp BP Sys/Hyman Pulse Ox Last 24 Hr 97.0 F 84-92 20-32 89-121/50-56 94-95 Intake & Output 10/13/16 10/14/16 10/15/16 10/16/16 23:59 23:59 23:59 23:59 Weight 90 lb Constitutional: Yes: Mild Distress, Poor Hygeine Eyes: Yes: Other (quentin due to pt resistance) HENT: Yes: Atraumatic Cardiovascular: Yes: Pulse Irregular, S1, S2 Respiratory: Yes: On Nasal O2, Rales (bilateral anterior at bases), Rhonchi ( bilateral anterior midlung down). No: Wheezes Gastrointestinal: Yes: Normal Bowel Sounds, Abdomen, Obese, Tenderness (diffuse) ...Rectal Exam: Yes: Deferred Renal/: Yes: Other (pending medrano) Extremities: Yes: Other Edema: Yes Edema: LLE: 3+, RLE: 2+ Peripheral Pulses WNL: (very weak bilateral pedal pulses) Integumentary: Yes: Bruising, Jaundice, Skin Tear (LUE) Neurological: Yes: Confusion Labs: Abnormal Lab Results 10/15/16 10/15/16 10/15/16 20:20 20:20 20:20 WBC 22.0 H D RBC 3.16 L Hgb 9.4 L Hct 29.4 L MCHC 31.8 L RDW 21.0 H Lymphocytes % 3.0 L D Band Neutrophils 20.0 H INR 1.71 H D ABG pH ABG pCO2 at Pt Temp ABG pO2 at Pt Temp ABG HCO3 ABG O2 Content ABG Base Excess Carbon Dioxide 19 L D BUN 71 H D Creatinine 3.2 H D Lactic Acid Calcium 7.8 L Total Bilirubin 4.4 H D AST 670 H D ALT 285 H D Alkaline Phosphatase 309 H D Creatine Kinase 316 H D CK-MB (CK-2) 4.317 H Troponin I 4.28 H* Total Protein 5.5 L Albumin 2.3 L D Lipase Urine Protein Urine Urobilinogen 10/15/16 10/15/16 10/15/16 20:20 21:30 23:10 WBC RBC Hgb Hct MCHC RDW Lymphocytes % Band Neutrophils INR ABG pH ABG pCO2 at Pt Temp ABG pO2 at Pt Temp ABG HCO3 ABG O2 Content ABG Base Excess Carbon Dioxide BUN Creatinine Lactic Acid 6.327 H* Calcium Total Bilirubin AST ALT Alkaline Phosphatase Creatine Kinase CK-MB (CK-2) Troponin I Total Protein Albumin Lipase 46 L Urine Protein 2+ H Urine Urobilinogen 4.0 e.u/dl H 10/16/16 01:49 WBC RBC Hgb Hct MCHC RDW Lymphocytes % Band Neutrophils INR ABG pH 7.31 L ABG pCO2 at Pt Temp 20.9 L ABG pO2 at Pt Temp 112.0 H ABG HCO3 10.1 L* ABG O2 Content 13.6 L ABG Base Excess -14.6 L* Carbon Dioxide BUN Creatinine Lactic Acid Calcium Total Bilirubin AST ALT Alkaline Phosphatase Creatine Kinase CK-MB (CK-2) Troponin I Total Protein Albumin Lipase Urine Protein Urine Urobilinogen Imaging - Results Chest X-ray: Image Reviewed Assessment/Plan Pt is an 86yr old woman with PMHx including emphysema(intermittent home o2), severe aortic stenosis, cardiomyopathy, CAD, CKD and advanced dementia. Pt now in the ICU for management of sepsis, NSTEMI and ANGELIKA. Pulm -o2 support prn for sat 88-92 -Continue home copd meds +prn -Cautious lasix prn -f/u repeat abg/chest xray in a.m ID: Sepsis AEB leukocytosis, lactic acid >6 -f/u cultures -Consult -Continue Zosyn, f/u vanc trough -left ankle bullae, consider imaging -f/u hepatic panel -f/u hepatic ultrasound -Consider ab/pel CT Cardiac: NSTEMI -Consult -Case discussed with Dr. Carreno, will start statin/plavix/asa/hep drip/low dose bb -Adjust hep drip with ptt -Trend enzymes -Serial EKG -f/u echo Renal: ANGELIKA BUN/Cr 71/3.2 (Cr was 1.9 on 09/30 -IVF as tolerated, pt with reduced LVF -Monitor electrolytes -Strict I/Os -f/u urine creatinine/electrolytes -Renal dose medication -Will not start ACEI GI: Jaundice/elevated LFTs -f/u hepatic panel -f/u hepatic ultrasound -Stool studies -Monitor coags/platelets Neuro -Pain management prn with morphine Endo -BGM -Glycemic control Prophylactic -DVT (covered with heparin drip) -Aspiration and bleeding precautions
[2016-10-16] MEDS ORDERED: ATORVASTATIN CA 80 MG TABLET (FP) PO ONE (01:50)
[2016-10-16] MEDS ORDERED: METOPROLOL TARTRATE 5 MG/5 ML VIAL IVPUSH ONE (01:51)
[2016-10-16] MEDS ORDERED: ASPIRIN 81 MG CHEWABLE TABLETS PO ONE (01:55)
[2016-10-16] MEDS ORDERED: HEPARIN NA (PORCINE) 5,000 UNITS/ML 1ML VIAL IVPUSH PRN ×2 (01:56)
[2016-10-16] MEDS ORDERED: CLOPIDOGREL BISULFATE 300 MG TABLET PO ONE (01:56)
[2016-10-16 01:59] LABS: ARTERIAL BLD GAS O2 SATURATION 97.8 % (90-98.9); ARTERIAL BLOOD GAS BASE EXCESS -14.6 meq/l (-2-2); ARTERIAL BLOOD GAS pH 7.31 (7.35-7.45)
[2016-10-16 02:00] LABS: ALLENS TEST POSITIVE; ART PUNCT SITE RIGHT RADIAL; ARTERIAL BLOOD GAS HCO3 10.1 meq/L (22-26); LPM/O2% 2L; PT. ON O2? YES; TYPE OF O2 NASAL
[2016-10-16] MEDS ORDERED: HEPARIN INFUSION - 500 ML IVPB SCH (02:00)
[2016-10-16 02:43] LABS: MCH 29.8 pg (25.7-33.7); MCHC 31.9 g/dl (32.0-36.0); MEAN CELL VOLUME 93.4 fl (80-96); MEAN PLT VOLUME 10.1 fl (7.5-11.1); PLATELET COUNT 162 K/MM3 (134-434); WHITE BLOOD COUNT 16.7 K/mm3 (4.0-10.0)
[2016-10-16 02:46] LABS: INR 2.03 (0.82-1.09); PROTHROMBIN TIME (PATIENT) 22.7 SEC (9.98-11.88)
[2016-10-16 02:48] LABS: ACTIVATED PTT 34.5 SECONDS (26.9-34.4)
[2016-10-16] MEDS ORDERED: SODIUM BICARBONATE 8.4% 50 MEQ/50 ML DISP.SYRIN IVPUSH ONE ×2 (02:49→03:15)
[2016-10-16] MEDS ORDERED: morphine CARPU-JECT 2 MG/1 ML DISP.SYRIN IVPUSH PRN (02:53)
[2016-10-16 02:54] LABS: ALBUMIN 2.3 g/dl (3.4-5.0); BILIRUBIN,TOTAL 5.2 mg/dL (0.2-1.0); CALCIUM 7.6 mg/dL (8.5-10.1); CREATININE 3.2 mg/dL (0.55-1.02); TOT PROT 5.7 g/dl (6.4-8.2)
[2016-10-16] MEDS ORDERED: DEXTROSE 50%-WATER 50 ML DISP.SYRIN ONE (02:58)
[2016-10-16] MEDS ORDERED: DEXTROSE 50%-WATER 50 ML VIAL IVPUSH PRN (02:59)
[2016-10-16] MEDS ORDERED: DEXTROSE 50%-WATER 50 ML VIAL IVPUSH ONE (02:59)
[2016-10-16] MEDS ORDERED: NOREPINEPHRINE BITARTRATE 4 MG/4 ML ML IV ONE ×2 (03:18→03:35)
[2016-10-16] MEDS ORDERED: VASOPRESSIN 20 UNITS/ML VIAL IV ONE (03:20)
[2016-10-16 03:22] LABS: TROPONIN I 4.26 ng/ml (0.00-0.05)
[2016-10-16] MEDS ORDERED: VASOPRESSIN 50 UNITS in SODIUM CHLORIDE 97.5 ML IVPB SCH (03:30)
[2016-10-16] MEDS ORDERED: NOREPINEPHRINE BITARTRATE 16,000 MCG in DEXTROSE 5%-WATER - 484 ML IV SCH (03:30)
[2016-10-16] MEDS ORDERED: PNEUMOC 13-VAL CONJ-DIP CRM/PF 0.5 ML DISP.SYRIN IM ONE (03:42)
[2016-10-16 03:43] VITALS: TEMP 98; BMI 25.4
[2016-10-16] MEDS ORDERED: PROPOFOL 100 ML ONE (03:45)
[2016-10-16 03:57] LABS: ANISOCYTOSIS 2+; BURR CELLS 1+; DOHLE BODIES 1+; MICROCYTOSIS 2+
[2016-10-16] MEDS ORDERED: FENTANYL INJECTION 500 MCG in DEXTROSE 5%-WATER - 90 ML IJ SCH (04:00)
[2016-10-16] MEDS ORDERED: PROPOFOL 200 MG/20 ML VIAL IVPUSH ONE ×2 (04:01)
--- NOTE | 2016-10-16 04:06 | PROC ---
Intubation - Intubation Reason for Intubation: Respiratory Insufficiency, Airway Protection Intubation Method: orotracheal Blade used: Glidescope Tube Size (cm): 7.5 Tube position @ lip (cm): 20 Tube position confirmed by: Direct visualization, CO2 detector, Chest x-ray, Breath sounds Breath Sounds after Intubation: equal Post Intubation Xray: (pending) Remarks: No noted complications. Used 50mcg Fentanyl x2 and propofol 20,000mcg, 10, 000mcg. Chest xray pending. Dr. Carreno in attendance for procedure.
[2016-10-16] MEDS ORDERED: SODIUM CHLORIDE 1,000 ML IV STA (04:07)
--- NOTE | 2016-10-16 04:15 | PN ---
Progress Note (short form) - Note Progress Note: ~0305 -- Called to bedside for acute drop in BP from 138/99 to MAP 40s. Pt with agonal tachypneic breathing, without wheezing. Faint rales at bases, HR 90s. Started on peripheral vasopressin and given IVF bolus without adequate response to BP. Case discussed with Dr. Carreno. Risks and benefits of peripheral levophed discussed as pt on heparin drip with coagulapathy secondary to hepatic disease and central access suboptimal due to bleed risk. Decided to start diluted peripheral levophed. Pt with signs of fatigue and desaturation requiring intubation. Situation discussed with pt's next of kin, daughter Jennifer Coreas. Daughter states she does not want CPR on her mother and would like her to have pain medication. I started pt on 25mcg of Fentanyl/hr with family at bedside. Dr. Carreno do discuss goals of care.
[2016-10-16] MEDS ORDERED: WATER IV SCH ×2 (04:19→05:00)
[2016-10-16] MEDS ORDERED: DEXTROSE 5% IV SCH (04:19)
[2016-10-16] MEDS ORDERED: NOREPINEPHRINE BITARTRATE IV SCH (04:19)
[2016-10-16 04:45] LABS: ARTERIAL BLD GAS O2 SATURATION 98.2 % (90-98.9)
[2016-10-16 04:46] LABS: ALLENS TEST POSITIVE; ART PUNCT SITE RIGHT RADIAL; ARTERIAL BLOOD GAS pH 7.16 (7.35-7.45); LPM/O2% 40%; MECH. VENT. YES; PT. ON O2? YES; TYPE OF O2 MECH VENT; VENT RATE 16; VT/PRESS 400
[2016-10-16 04:47] LABS: ARTERIAL BLOOD GAS HCO3 9.3 meq/L (22-26)
[2016-10-16] MEDS ORDERED: DEXTROSE IV SCH (05:00)
[2016-10-16] MEDS ORDERED: SODIUM BICARBONATE IV SCH (05:00)
[2016-10-16] MEDS ORDERED: SODIUM BICARBONATE 8.4% 50 MEQ/50 ML VIAL ONE (05:14)
[2016-10-16] MEDS ORDERED: PIPERACILLIN/TAZOB 3.375 GM/50 ML PRE-DOCKED IVPB ONE (06:00)
[2016-10-16] MEDS ORDERED: morphine CARPU-JECT 2 MG/1 ML DISP.SYRIN IVPUSH ONE (06:20)
[2016-10-16] MEDS ORDERED: MORPHINE 100 MG in SODIUM CHLORIDE 98 ML IVPB SCH (07:15)
--- NOTE | 2016-10-16 07:54 | PN ---
Physical Exam: SUBJECTIVE: patient seen and examined patient on compassionate weaning and comfort care, on morphine Pupillary reflex absent, corneal reflex absent, eyes not moving, pupil dilated and fixed, no gag reflex. no spontaneous breathing no heart sound appreciated no pulse Family at bed side Patient pronounced at 7: 34 am OBJECTIVE: Laboratory Results - last 24 hr 10/15/16 10/16/16 10/16/16 23:10 01:49 02:00 WBC RBC Hgb Hct MCV MCHC RDW Plt Count MPV Neutrophils % Lymphocytes % Monocytes % Band Neutrophils Dohle Bodies Anisocytosis Microcytosis [place] Cells INR PTT (Actin FS) Puncture Site Right radial ABG pH 7.31 L ABG pCO2 at Pt Temp 20.9 L ABG pO2 at Pt Temp 112.0 H ABG HCO3 10.1 L* ABG O2 Sat (Measured) 97.8 ABG O2 Content 13.6 L ABG Base Excess -14.6 L* Don Test Positive O2 Delivery Device Nasal Oxygen Flow Rate 2l Vent Mode Vent Rate Mechanical Rate PEEP 0.0 Pressure Support Vent Sodium Potassium Chloride Carbon Dioxide Anion Gap BUN Creatinine Creat Clearance w eGFR POC Glucometer Random Glucose Lactic Acid 6.327 H* 9.840 H* Calcium Total Bilirubin AST ALT Alkaline Phosphatase Creatine Kinase Troponin I B-Natriuretic Peptide Total Protein Albumin Blood Type Antibody Screen 10/16/16 10/16/16 10/16/16 02:00 02:00 02:00 WBC RBC Hgb Hct MCV MCHC RDW Plt Count MPV Neutrophils % Lymphocytes % Monocytes % Band Neutrophils Dohle Bodies Anisocytosis Microcytosis [place] Cells INR 2.03 H PTT (Actin FS) 34.5 H Puncture Site ABG pH ABG pCO2 at Pt Temp ABG pO2 at Pt Temp ABG HCO3 ABG O2 Sat (Measured) ABG O2 Content ABG Base Excess Don Test O2 Delivery Device Oxygen Flow Rate Vent Mode Vent Rate Mechanical Rate PEEP Pressure Support Vent Sodium 134 L Potassium 5.2 H Chloride 98 Carbon Dioxide 11 L D Anion Gap 25 H BUN 71 H Creatinine 3.2 H Creat Clearance w eGFR 13.77 POC Glucometer Random Glucose 35 L* D Lactic Acid Calcium 7.6 L Total Bilirubin 5.2 H AST 942 H D ALT 397 H D Alkaline Phosphatase 439 H D Creatine Kinase 416 H D Troponin I Cancelled 4.26 H* B-Natriuretic Peptide Total Protein 5.7 L Albumin 2.3 L Blood Type Antibody Screen 10/16/16 10/16/16 10/16/16 02:00 02:00 02:00 WBC 16.7 H RBC 3.39 L Hgb 10.1 L Hct 31.7 L MCV 93.4 MCHC 31.9 L RDW 21.0 H Plt Count 162 MPV 10.1 Neutrophils % 63.0 Lymphocytes % 3.0 L Monocytes % 2.0 L Band Neutrophils 32.0 H D Dohle Bodies 1+ Anisocytosis 2+ Microcytosis 2+ [place] Cells 1+ INR PTT (Actin FS) Puncture Site ABG pH ABG pCO2 at Pt Temp ABG pO2 at Pt Temp ABG HCO3 ABG O2 Sat (Measured) ABG O2 Content ABG Base Excess Don Test O2 Delivery Device Oxygen Flow Rate Vent Mode Vent Rate Mechanical Rate PEEP Pressure Support Vent Sodium Potassium Chloride Carbon Dioxide Anion Gap BUN Creatinine Creat Clearance w eGFR POC Glucometer Random Glucose Lactic Acid Calcium Total Bilirubin AST ALT Alkaline Phosphatase Creatine Kinase Troponin I B-Natriuretic Peptide 018540.78 H Total Protein Albumin Blood Type O POSITIVE Antibody Screen Negative 10/16/16 10/16/16 03:11 04:34 WBC RBC Hgb Hct MCV MCHC RDW Plt Count MPV Neutrophils % Lymphocytes % Monocytes % Band Neutrophils Dohle Bodies Anisocytosis Microcytosis [place] Cells INR PTT (Actin FS) Puncture Site Right radial ABG pH 7.16 L* D ABG pCO2 at Pt Temp 26.9 L D ABG pO2 at Pt Temp 147.0 H D ABG HCO3 9.3 L* ABG O2 Sat (Measured) 98.2 ABG O2 Content 14.4 L ABG Base Excess -18.0 L* Don Test Positive O2 Delivery Device Mech vent Oxygen Flow Rate 40% Vent Mode A/c Vent Rate 16 Mechanical Rate Yes PEEP 5.0 Pressure Support Vent 400 Sodium Potassium Chloride Carbon Dioxide Anion Gap BUN Creatinine Creat Clearance w eGFR POC Glucometer [id number] Random Glucose Lactic Acid Calcium Total Bilirubin AST ALT Alkaline Phosphatase Creatine Kinase Troponin I B-Natriuretic Peptide Total Protein Albumin Blood Type Antibody Screen Visit type - Emergency Visit Emergency Visit: Yes ED Registration Date: 10/15/16 Care time: The patient presented to the Emergency Department on the above date and was hospitalized for further evaluation of their emergent condition. - New Patient This patient is new to me today: Yes Date on this admission: 10/16/16 - Critical Care Critical Care patient: Yes Total Critical Care Time (in minutes): 30 Critical Care Statement: The care of this patient involved high complexity decision making to prevent further life threatening deterioration of the patient 's condition and/or to evalute & treat vital organ system(s) failure or risk of failure.
[2016-10-16 08:59] VITALS: BP 0/0; PULSE 0
[2016-10-16] MEDS ORDERED: PANTOPRAZOLE SODIUM 40 MG/100 ML PRE-DOCKED IVPB SCH (10:00)
[2016-10-16] MEDS ORDERED: PANTOPRAZOLE SODIUM 40 MG in SODIUM CHLORIDE 100 ML IVPB SCH (10:00)
[2016-10-16] MEDS ORDERED: MUPIROCIN 2% TOPICAL OINTMENT FOR DECOLONIZATION NS SCH (10:00)
--- NOTE | 2016-10-16 13:22 | PN ---
Teaching Attending Note Name of Resident: David Prado ATTENDING PHYSICIAN STATEMENT I saw and evaluated the patient. I reviewed the resident's note and discussed the case with the resident. I agree with the resident's findings and plan as documented. Received sign out from overnight team about decision for compassionate wean and comfort measures. started on morphine ggt this morning. Pt pronounced prior to my assessment.
--- NOTE | 2016-10-16 13:41 | DS ---
Physical Exam: SUBJECTIVE: Patient seen and examined OBJECTIVE: Vital Signs Period Temp Pulse Resp BP Sys/Hyman Pulse Ox Last 24 Hr 98 F 0-101 16-31 0-138/0-99 95-100 PHYSICAL EXAM LABS Laboratory Results - last 24 hr 10/15/16 10/16/16 10/16/16 23:10 01:49 02:00 WBC RBC Hgb Hct MCV MCHC RDW Plt Count MPV Neutrophils % Lymphocytes % Monocytes % Band Neutrophils Dohle Bodies Anisocytosis Microcytosis [place] Cells INR PTT (Actin FS) Puncture Site Right radial ABG pH 7.31 L ABG pCO2 at Pt Temp 20.9 L ABG pO2 at Pt Temp 112.0 H ABG HCO3 10.1 L* ABG O2 Sat (Measured) 97.8 ABG O2 Content 13.6 L ABG Base Excess -14.6 L* Don Test Positive O2 Delivery Device Nasal Oxygen Flow Rate 2l Vent Mode Vent Rate Mechanical Rate PEEP 0.0 Pressure Support Vent Sodium Potassium Chloride Carbon Dioxide Anion Gap BUN Creatinine Creat Clearance w eGFR POC Glucometer Random Glucose Lactic Acid 6.327 H* 9.840 H* Calcium Total Bilirubin AST ALT Alkaline Phosphatase Creatine Kinase Troponin I B-Natriuretic Peptide Total Protein Albumin Blood Type Antibody Screen 10/16/16 10/16/16 10/16/16 02:00 02:00 02:00 WBC RBC Hgb Hct MCV MCHC RDW Plt Count MPV Neutrophils % Lymphocytes % Monocytes % Band Neutrophils Dohle Bodies Anisocytosis Microcytosis [place] Cells INR 2.03 H PTT (Actin FS) 34.5 H Puncture Site ABG pH ABG pCO2 at Pt Temp ABG pO2 at Pt Temp ABG HCO3 ABG O2 Sat (Measured) ABG O2 Content ABG Base Excess Don Test O2 Delivery Device Oxygen Flow Rate Vent Mode Vent Rate Mechanical Rate PEEP Pressure Support Vent Sodium 134 L Potassium 5.2 H Chloride 98 Carbon Dioxide 11 L D Anion Gap 25 H BUN 71 H Creatinine 3.2 H Creat Clearance w eGFR 13.77 POC Glucometer Random Glucose 35 L* D Lactic Acid Calcium 7.6 L Total Bilirubin 5.2 H AST 942 H D ALT 397 H D Alkaline Phosphatase 439 H D Creatine Kinase 416 H D Troponin I Cancelled 4.26 H* B-Natriuretic Peptide Total Protein 5.7 L Albumin 2.3 L Blood Type Antibody Screen 0410/16/16 10/16/16 02:00 02:00 02:00 WBC 16.7 H RBC 3.39 L Hgb 10.1 L Hct 31.7 L MCV 93.4 MCHC 31.9 L RDW 21.0 H Plt Count 162 MPV 10.1 Neutrophils % 63.0 Lymphocytes % 3.0 L Monocytes % 2.0 L Band Neutrophils 32.0 H D Dohle Bodies 1+ Anisocytosis 2+ Microcytosis 2+ [place] Cells 1+ INR PTT (Actin FS) Puncture Site ABG pH ABG pCO2 at Pt Temp ABG pO2 at Pt Temp ABG HCO3 ABG O2 Sat (Measured) ABG O2 Content ABG Base Excess Don Test O2 Delivery Device Oxygen Flow Rate Vent Mode Vent Rate Mechanical Rate PEEP Pressure Support Vent Sodium Potassium Chloride Carbon Dioxide Anion Gap BUN Creatinine Creat Clearance w eGFR POC Glucometer Random Glucose Lactic Acid Calcium Total Bilirubin AST ALT Alkaline Phosphatase Creatine Kinase Troponin I B-Natriuretic Peptide 924650.78 H Total Protein Albumin Blood Type O POSITIVE Antibody Screen Negative 10/16/16 10/16/16 03:11 04:34 WBC RBC Hgb Hct MCV MCHC RDW Plt Count MPV Neutrophils % Lymphocytes % Monocytes % Band Neutrophils Dohle Bodies Anisocytosis Microcytosis [place] Cells INR PTT (Actin FS) Puncture Site Right radial ABG pH 7.16 L* D ABG pCO2 at Pt Temp 26.9 L D ABG pO2 at Pt Temp 147.0 H D ABG HCO3 9.3 L* ABG O2 Sat (Measured) 98.2 ABG O2 Content 14.4 L ABG Base Excess -18.0 L* Don Test Positive O2 Delivery Device Mech vent Oxygen Flow Rate 40% Vent Mode A/c Vent Rate 16 Mechanical Rate Yes PEEP 5.0 Pressure Support Vent 400 Sodium Potassium Chloride Carbon Dioxide Anion Gap BUN Creatinine Creat Clearance w eGFR POC Glucometer 196.12979 Random Glucose Lactic Acid Calcium Total Bilirubin AST ALT Alkaline Phosphatase Creatine Kinase Troponin I B-Natriuretic Peptide Total Protein Albumin Blood Type Antibody Screen CBC, BMP 10/16/16 02:00 10/16/16 02:00 Microbiology 10/16/16 05:00 Nasopharyngeal Swab Influenza Types A,B Antigen (MATT) - Final 10/16/16 05:00 Nasopharyngeal Swab - Final 10/16/16 02:00 Blood - Peripheral Venous Blood Culture - Final Klebsiella Oxytoca 10/16/16 02:00 Blood - Peripheral Venous Blood Culture - Final Enterobacter Cloacae 10/15/16 21:30 Urine - Urine - Catheterized Urine Culture - Final Enterococcus [facility] Laboratory Tests 10/04/16 10/04/16 10/04/16 05:00 10:50 17:00 INR PTT (Actin FS) ABG pH ABG pCO2 at Pt Temp ABG pO2 at Pt Temp ABG HCO3 Random Glucose Hemoglobin A1c % Lactic Acid Total Bilirubin AST ALT Alkaline Phosphatase Creatine Kinase Troponin I 0.11 H 0.12 H B-Natriuretic Peptide Total LDL Cholesterol HDL Cholesterol Urine Nitrite Negative Ur Leukocyte Esterase Trace H Urine WBC 2 10/05/16 10/05/16 10/15/16 05:35 05:35 21:30 INR PTT (Actin FS) ABG pH ABG pCO2 at Pt Temp ABG pO2 at Pt Temp ABG HCO3 Random Glucose Hemoglobin A1c % 5.8 Lactic Acid Total Bilirubin AST ALT Alkaline Phosphatase Creatine Kinase Troponin I 0.12 H B-Natriuretic Peptide Total LDL Cholesterol 75 HDL Cholesterol 41 Urine Nitrite Ur Leukocyte Esterase Urine WBC 21 10/16/16 10/16/16 10/16/16 02:00 02:00 02:00 INR 2.03 H PTT (Actin FS) 34.5 H ABG pH ABG pCO2 at Pt Temp ABG pO2 at Pt Temp ABG HCO3 Random Glucose 35 L* D Hemoglobin A1c % Lactic Acid 9.840 H* Total Bilirubin 5.2 H AST 942 H D ALT 397 H D Alkaline Phosphatase 439 H D Creatine Kinase Troponin I B-Natriuretic Peptide Total LDL Cholesterol HDL Cholesterol Urine Nitrite Ur Leukocyte Esterase Urine WBC 10/16/16 10/16/16 10/16/16 02:00 02:00 04:34 INR PTT (Actin FS) ABG pH 7.16 L* D ABG pCO2 at Pt Temp 26.9 L D ABG pO2 at Pt Temp 147.0 H D ABG HCO3 9.3 L* Random Glucose Hemoglobin A1c % Lactic Acid Total Bilirubin AST ALT Alkaline Phosphatase Creatine Kinase 416 H D Troponin I 4.26 H* B-Natriuretic Peptide 116218.78 H Total LDL Cholesterol HDL Cholesterol Urine Nitrite Ur Leukocyte Esterase Urine WBC HOSPITAL COURSE: Date of Admission:10/15/16 Patient is a 86 year old female with the significant past medical history of Dementia, COPD on intermittent home O2, CHF, CAD, CKD, Fall sent for [facility] for evaluation of Lethargy. Patient presented with hypotension, tachycardia, hypoglycemia. On arrival, patient was afebrile, Hypotensive 89/50; RR-32; Spo2 94 % in RA; Leukocytosis 22; creatinine 3.2/GFR-13.77; Increased liver enzymes; Increased troponin 4.28. In the ED, patient received IV Levofloxacin; IV NS. Pt was disgnosed with Sepsis/Septic Shock and was admitted in the ICU. While in the ED, patient was able to say few words. After transferring to the ICU, patient became less alert, hypotensive to a MAP of 40. Vasopressin was started with bolus of NS. Since patient didn't respond, she was intubated. Levophed was started. Family members were informed. Patients daughter (HCP) and son came in and mentioned that patient never wanted to be intubated. Hence, she was made DNR , papers signed and is in the chart. Family members wanted to wait for the natural remedy consultant to come for the last rights. Morphine drip was started and Palliative care/ comfort care was initiated. Pt was compassionately weaned off the ventilator. Family members and Dentofacial Orthopedics Dentist are at bed side. At 7:34 Am Pt with family at Bedside. Date of Discharge: 10/16/16 Minutes to complete discharge: 40 Discharge Summary Reason For Visit: HYPOGLYCEMIA/DEHYDRATION/CHRONIC OBSTRUCTIVE PULMO - Instructions Referrals: Magali Lugo MD [Primary Care Provider] - Disposition: - Home Medications Comprehensive Discharge Medication List: Ambulatory Orders Albuterol Sulfate [Proair Respiclick] 90 mcg IH Q4H PRN 10/27/15 Aspirin [ASA -] 81 mg PO DAILY 10/27/15 Furosemide [Lasix -] 20 mg PO DAILY #30 tablet 11/01/15 Magnesium Oxide 400 mg PO DAILY #14 tablet 11/01/15 Clotrimazole 15 gm TP DAILY 10/04/16 Metoprolol Succinate [Toprol XL -] 12.5 mg PO DAILY #30 tab 10/09/16 Nystatin Powder [Nystop Powder -] 1 applic TP BID #1 bottle 10/09/16 Quetiapine Fumarate [Seroquel -] 25 mg PO HS #30 tablet 10/09/16 This patient is new to me today: Yes Date on this admission: 10/20/16 Emergency Visit: Yes ED Registration Date: 10/15/16 Care time: The patient presented to the Emergency Department on the above date and was hospitalized for further evaluation of their emergent condition. Critical Care patient: Yes Total Critical Care Time (in minutes): 35 Critical Care Statement: The care of this patient involved high complexity decision making to prevent further life threatening deterioration of the patient 's condition and/or to evalute & treat vital organ system(s) failure or risk of failure. - Discharge Referral Referred to [facility] No
[2016-10-16] MEDS ORDERED: CHLORHEXIDINE GLUCONATE 4% CLEANSER FOR DECOLONIZATION TP SCH (22:00)
[2016-10-16] MEDS ORDERED: CLOPIDOGREL BISULFATE 75 MG TABLET (FP) PO SCH (22:00)
[2016-10-16] MEDS ORDERED: ATORVASTATIN CA 80 MG TABLET (FP) PO SCH (22:00)
[2016-10-16] MEDS ORDERED: ASPIRIN 81 MG CHEWABLE TABLETS PO SCH (22:00)
--- NOTE | 2016-10-17 16:24 | EKG ---
Test Reason : Blood Pressure : / mmHG Vent. Rate : 094 BPM Atrial Rate : 066 BPM P-R Int : 000 ms QRS Dur : 106 ms QT Int : 366 ms P-R-T Axes : 000 011 197 degrees QTc Int : 457 ms SINUS RHYTHM INCOMPLETE LEFT BUNDLE BRANCH BLOCK ABNORMAL ECG Confirmed by XIMENA VASQUEZ MD ([id number]) on 10/17/2016 4:24:07 PM Referred By: Confirmed By:XIMENA VASQUEZ MD
== END 2016-10-16 07:34 | disposition expired | DRG 871 ==
LOC: JER 18:28 → JERBED 22:07 → JICU 10-16 01:09
PROVIDERS: ADMIT Internal Medicine; ATTEND Internal Medicine
PROC: 0BH17EZ Insertion of Endotracheal Airway into Trachea, Via Natural or Artificial Opening (ICD-10-PCS; principal; 2016-10-16)
PROC: 5A1935Z Respiratory Ventilation, Less than 24 Consecutive Hours (ICD-10-PCS; 2016-10-16)
DX: A41.89 Other specified sepsis (principal); R65.21 Severe sepsis with septic shock; I21.4 Non-ST elevation (NSTEMI) myocardial infarction; N17.9 Acute kidney failure, unspecified; I42.8 Other cardiomyopathies; R17 Unspecified jaundice; I13.0 Hypertensive heart and chronic kidney disease with heart failure and stage 1 through stage 4 chronic kidney disease, or unspecified chronic kidney disease; I25.10 Atherosclerotic heart disease of native coronary artery without angina pectoris; J44.9 Chronic obstructive pulmonary disease, unspecified; E16.1 Other hypoglycemia; D72.828 Other elevated white blood cell count; N26.1 Atrophy of kidney (terminal); E86.0 Dehydration; I35.0 Nonrheumatic aortic (valve) stenosis; R74.0 Nonspecific elevation of levels of transaminase and lactic acid dehydrogenase [LDH]; R06.89 Other abnormalities of breathing; N18.9 Chronic kidney disease, unspecified; I50.9 Heart failure, unspecified; F03.90 Unspecified dementia, unspecified severity, without behavioral disturbance, psychotic disturbance, mood disturbance, and anxiety; S32.69 Other specified fracture of ischium; X58.XXXD Exposure to other specified factors, subsequent encounter; Z99.81 Dependence on supplemental oxygen; Z87.891 Personal history of nicotine dependence; Z66 Do not resuscitate
CPT/HCPCS: 31500; 36415; 36600; 71010-TC; 76705-TC; 80053; 81003; 81015; 82140; 82550; 82553; 82803; 83605; 83690; 83880; 84484; 85025; 85610; 85730; 86850; 86900; 86901; 87040; 87086; 87186; 87804; 93005; 93010; 94002; 99285-25; J1644